=== PATIENT | male | born 1955 | race Caucasian/White ===

== ENCOUNTER 2017-10-13 17:06 | Inpatient (IN) | payer OTHER ==
[~2017-10-13] VITALS: Ht 182.9 cm; Wt 85.4 kg
--- NOTE | ~2017-10-13 | D ---
[facility] [place] [address] DISCHARGE SUMMARY Name: HAIRSHANDA Adams Room #: 213-P [facility] IN ..#: [id number] Admission: 10/13/17 Attend Phys: Sera Saleh Discharge: 10/20/17 Date of : 59 Report #: [id number] THIS REPORT FOR: //name// CC: Serafin Howell FINAL DIAGNOSES: 1. Community-acquired pneumonia. 2. Acute kidney injury. 3. Ischemic cardiomyopathy. 4. Coronary artery disease. 5. Thoracic descending aortic aneurysm. 6. Diabetes type 2. HOSPITAL COURSE: The patient was admitted to the emergency room with shortness of breath. He was diagnosed and treated for pneumonia. He had also undergone a CT with contrast and had some slight contrast-induced acute kidney injury. His creatinine haley to about 2.8. The renal service and cardiology followed him. He received antibiotics during his stay. Thoracic surgery was also involved based on the CT findings of a thoracic aneurysm of the descending aorta. Please see that separately dictated report. Ultimately with supportive medical care, all his conditions improved, his renal function stabilized and improved and creatinine normalized to baseline. Medicines were adjusted for his heart and blood pressure according to cardiology. He finished a course of IV antibiotics and was weaned off oxygen. Chest x-ray showed improvement. He had no other interval complication. The plan is for him to follow up with cardiothoracic surgery as an outpatient, then set up a treatment plan for the aneurysm. PHYSICAL EXAMINATION: GENERAL: On the day of discharge, he was awake and alert with stable vital signs. Normal O2 sats on room air. LUNGS: Clear. HEART: Regular. ABDOMEN: Soft, normoactive bowel sounds. EXTREMITIES: No edema. DISPOSITION: He will be discharged to home with diabetic diet, activity as tolerated. Follow up with Dr. Almonte in 1 week, Dr. Howell in 1 week. [facility] [address] [place] [address] DISCHARGE SUMMARY Name: HAIRSHANDA P Room #: 213-P [facility] IN [facility]#: [id number] Admission: 10/13/17 Attend Phys: Sera Saleh Discharge: 10/20/17 Date of : 59 Report #: [id number] DISCHARGE MEDICATIONS: Lasix 40 mg, Lipitor 40 mg, aspirin 81 mg, Coreg 25 mg b.i.d., fish oil, Prilosec 10 mg, Avapro 300 mg, Aldactone 25 mg. <ELECTRONICALLY SIGNED> By: Jorge Akins MD 10/22/17 0831 1020 1106 Jorge Akins MD /nt
--- NOTE | ~2017-10-13 | HC ---
[facility] [place] [address] CONSULTATION Name: SHANDA HAIR Room #: 213-P ADM IN M.R.#: [id number] Admission: 10/13/17 Attend Phys: Sera Saleh Discharge: Date of : 59 Report #: [id number] THIS REPORT FOR: //name// CC: David Howell DATE OF SERVICE: 10/14/2017 PRIMARY CARE PHYSICIAN: Dr. Serafin Almonte. REFERRING PHYSICIAN: Dr. Jorge Akins. REASON FOR REFERRAL: Infiltrates, possible pneumonia. HISTORY OF PRESENT ILLNESS: The patient is a 62-year-old white male who was admitted with generalized weakness and dyspnea. CT chest and chest x-ray shows infiltrates. A pulmonary consultation was requested regarding questionable pneumonia. It should be noted that the patient is a fair historian. He is quite tangential with his answers, not able to give answers at times. According to records, patient has been hospitalized at [facility] for nephrolithiasis. He has had urethral stents placed. According to the patient, he was hospitalized at least 4 times recently. He was then sent home. He states that he started developing increasing dyspnea a few days prior to presentation. To the Emergency Room personnel, he has also complained of dizziness, lightheadedness along with weakness. CT chest showed evidence of aortic aneurysm. It did show infiltrates. The patient otherwise denies any recent productive cough, febrile illness, chest pain. PAST MEDICAL HISTORY: Notable for coronary artery disease with myocardial infarction with bypass surgery in 2004 at [facility], hypertension, hyperlipidemia, ischemic cardiomyopathy, ejection fraction 30%, status post ICD placement. PAST SURGICAL HISTORY: As mentioned above. ALLERGIES: None to medications. [facility] [address] [place] [address] CONSULTATION Name: HAIRSHANDA Adams Room #: 213-P ADM IN .R.#: [id number] Admission: 10/13/17 Attend Phys: Sera Saleh Discharge: Date of : 59 Report #: [id number] PREVIOUS HOME MEDICATIONS: Include hydrocodone, Norflex, amlodipine, aspirin, Lasix, Coreg, niacin, besylate, Prilosec, Avapro, Aldactone. FAMILY HISTORY: Noncontributory. SOCIAL HISTORY: Denies any tobacco or alcohol use. REVIEW OF SYSTEMS: As mentioned above, otherwise 10-point system review negative. PHYSICAL EXAMINATION: GENERAL: He is awake, alert, was somewhat incoherent, not able to answer questions clearly. VITAL SIGNS: Temperature is 97.6 degrees Fahrenheit, pulse is 83, respiratory rate is 20, blood pressure 110/79 mmHg, saturation 97%. HEENT: Normocephalic, atraumatic. NECK: Supple, without lymphadenopathy or thyromegaly. CHEST: Breath sounds are good with few scattered crackles. No wheezes. CARDIOVASCULAR: Normal S1, S2. There is no murmur or gallop. There is no JVD. There is no carotid bruit. Pulses are 2+/4+ bilaterally. ABDOMEN: Soft, nontender, no organomegaly or masses felt. GENITOURINARY: Deferred. RECTAL: Deferred. EXTREMITIES: There is no edema, cyanosis or clubbing. LABORATORY DATA: Chest x-ray and chest CT are reviewed. Chest x-ray shows hazy infiltrate in the left perihilar area with cardiomegaly, mild linear infiltrates seen in the right upper lobe. CT chest angiogram shows patchy focal infiltrates seen in both upper lung munoz, lower lung munoz, small bilateral pleural effusion. No consolidation or air bronchogram is noted. Mediastinum appears to be unremarkable. Mild ground glass opacity is noted. There is a large aneurysm involving the descending aorta measuring 8.6 x 8.5 x 7.8 cm, a significant mural thrombus is also noted in the anterior wall. BNP is 6900. Influenza A and B negative. Echocardiogram showed ejection fraction of 25%, moderately hypokinetic right ventricle, left ventricle is mildly dilated, mild aortic regurgitation, moderate to severe mitral regurgitation, pulmonary artery pressure measuring 55-60 mmHg. Renal ultrasound was normal. Strep pneumonia antigen is negative. Legionella antigen is negative. Sodium 138, potassium 6.2, chloride 107, CO2 is 22, BUN is 34, creatinine is 2.3. Liver function enzymes unremarkable. WBC 11,900, hemoglobin 11.6, platelets are normal, no evidence of bandemia. Albumin 2.8. IMPRESSION: 1. Patchy focal infiltrates in this 62-year-old white male. Aside from his dyspnea, he denies any recent febrile illness, productive cough. Etiology is [address] [address] CONSULTATION Name: HAIRSHANDA Room #: 213-P ADM IN .R.#: [id number] Admission: 10/13/17 Attend Phys: Sera Saleh Discharge: Date of : 59 Report #: [id number] unclear, but the radiographic appearance does not suggest typical pneumonia pattern, but rather possible atypical infectious process such as viral. Inflammatory cause is also considered. 2. Descending thoracic aortic aneurysm measuring approximately 8 cm in diameter. 3. Acute kidney injury comma/chronic kidney disease. 4. Coronary artery disease, ischemic cardiomyopathy, ejection fraction approximately 25%. 5. Ogrqpdfe-vs-dljycw mitral regurgitation. 6. Pulmonary hypertension due to valvular heart disease. 7. Diabetes mellitus type 2. 8. Hypertension. RECOMMENDATION AND DISCUSSION: We will check a procalcitonin level, although this may not be helpful given his recent hospitalization and nephrolithiasis. I think it is reasonable to consider antibiotics, Infectious Disease has been consulted. We will await Infectious Disease workup and followup chest x-ray. If infiltrates worsens, could consider diagnostic bronchoscopy to rule out infectious processes. Would also consider a trial of diuretics given the presence of ground-glass opacity, ischemic cardiomyopathy and chronic systolic heart failure. Thank you for this consultation. <ELECTRONICALLY SIGNED> By: Yang Martines MD 10/15/17 1615 1818 0024 Yang Martines MD /nt
--- NOTE | ~2017-10-13 | HC ---
[facility] [place] [address] CONSULTATION Name: SHANDA HAIR Adams Room #: 213-P [facility] IN ..#: [id number] Admission: 10/13/17 Attend Phys: Sera Saleh Discharge: Date of : 59 Report #: [id number] THIS REPORT FOR: //name// CC: Serafin Howell REASON FOR CONSULTATION: Elevated creatinine. REASON FOR PRESENTATION: Shortness of breath. HISTORY OF PRESENT ILLNESS: This is a 62-year-old with extensive past medical history including hypertension, coronary artery disease, status post bypass surgery in 2004. He is also known to have cardiomyopathy with an ejection fraction of around 30%. He is also known to have an ICD placed. He has had repeated episodes of kidney stones in the past few months for which he had been seen at [facility]. In that process, he was found to have an aortic aneurysm. Arrangements were made for the patient for this to be evaluated. He checked with the radiology department yesterday and this was closed, so he was told to go to the emergency room. Unfortunately, the patient received CTA and this has resulted in his creatinine to go up from a baseline of around 1.2 on presentation to 2.7 associated with hyperkalemia. This has mandated a nephrology consultation. ALLERGIES: No known drug allergies. MEDICATIONS: 1. Olmesartan. 2. Spironolactone. 3. Lasix. 4. Omeprazole. 5. Amlodipine. PAST MEDICAL HISTORY: 1. Hypertension. 2. Diabetes mellitus. 3. Hyperlipidemia. 4. Status post CABG. 5. ICD placement. SOCIAL HISTORY: No drug or alcohol abuse. He continues to work. FAMILY HISTORY: Significant for coronary artery disease. REVIEW OF SYSTEMS: GENERAL: No fever or chills. CARDIOVASCULAR: As per history of present illness. [facility] [address] [place] [address] CONSULTATION Name: HAIRSHANDA Room #: 213-P [facility] IN [facility].#: [id number] Admission: 10/13/17 Attend Phys: Sera Saleh Discharge: Date of : 59 Report #: [id number] PULMONARY: No cough, but significant shortness of breath. GASTROINTESTINAL: As per the history of present illness, but no nausea or vomiting. GENITOURINARY: No frequency, no urgency. PHYSICAL EXAMINATION: GENERAL: Alert. VITAL SIGNS: Pulse 91, blood pressure 130/98. HEAD AND NECK: No jugular venous distention. CHEST: Decreased air entry bilaterally. Crackles present. CARDIOVASCULAR: Regular. ABDOMEN: Soft, nontender. LOWER EXTREMITIES: No edema. SKIN: There is an ICD. LABORATORY VALUES: Reviewed. White blood cell count is 11.9. Potassium is 5.9, creatinine is 2.7. UA with plus protein and +3 blood. This is a Brice sample. Imaging including his chest CT reviewed. ASSESSMENT, IMPRESSION, AND PLAN: 1. Acute kidney injury. 2. Hyperkalemia. 3. Cardiomyopathy. 4. Pneumonia. 5. Coronary artery disease. 6. Contrast-induced nephropathy. 7. Unfortunately, this is a contrast-induced nephropathy as expected from the load of dye he received yesterday. 8. We will initiate appropriate treatment for his hyperkalemia. 9. IV fluid gently. 10. Discontinue olmesartan, spironolactone. 11. Cultures. 12. Appropriate antibiotic per ID and pulmonary for his infiltrates. 13. We will continue to follow along. <ELECTRONICALLY SIGNED> By: Gene Burrell MD 10/16/17 0953 1002 1022 Gene Burrell MD /nt
--- NOTE | ~2017-10-13 | H ---
[facility] [place] [address] HISTORY AND PHYSICAL Name: SHANDA HAIR Adams Room #: 213-P ADM IN .R.#: [id number] Admission: 10/13/17 Attend Phys: Sera Saleh Discharge: Date of : 59 Report #: [id number] THIS REPORT FOR: //name// CC: Serafin Molina Hermes Dante DATE OF SERVICE: 10/13/2017 CHIEF COMPLAINT: Weakness. HISTORY OF PRESENT ILLNESS: The patient is a 62-year-old gentleman admitted to the emergency room with general weakness. He presented yesterday after there was some question of whether he needed a CAT scan related to a known abdominal aortic aneurysm. He was routed through the emergency room and was complaining of feeling short of breath for a couple of weeks and general weakness. He also reported some dark stools. He had been undergoing evaluation for an abdominal aortic aneurysm at [facility] physicians earlier in the day and was directed to ER for a CT of the abdomen. He does have a history of coronary artery disease with bypass and DE in the past. PAST MEDICAL HISTORY: Coronary artery disease, cardiac bypass in 2004, hypertension, dyslipidemia, ischemic cardiomyopathy, EF 30%; and history of a cardiac defibrillator placement in 2006. PAST SURGICAL HISTORY: As above. FAMILY HISTORY: Noncontributory. SOCIAL HISTORY: No known chronic alcohol or tobacco use. ALLERGIES: None. MEDICATIONS: Arthur 5/40 mg, aspirin 81 mg, Lasix 20 mg, Coreg 25 mg twice a day, niacin, fish oil, Prilosec, Avapro 300 mg a day, and Aldactone 25 mg a day. REVIEW OF SYSTEMS: He just complains of general weakness. Otherwise, no headache, chest pain, productive cough, shortness of breath, abdominal pain, nausea, vomiting, diarrhea, constipation, dysuria, or syncope. OBJECTIVE: VITAL SIGNS: Temperature 36.6, pulse 93, respiration 22, blood pressure 140/101. GENERAL: He is awake and alert, in no distress. HEAD AND NECK: Unremarkable. LUNGS: Clear. [facility] [address] [place] [address] HISTORY AND PHYSICAL Name: HAIRSHANDA Room #: 213-P [facility] IN .R.#: [id number] Admission: 10/13/17 Attend Phys: Sera Saleh Discharge: Date of : 59 Report #: [id number] HEART: Regular. ABDOMEN: Obese, soft, normoactive bowel sounds. No rebound or guarding. EXTREMITIES: No cyanosis, clubbing, or edema. NEUROLOGIC: Motor strength 4/5 throughout. LAB REVIEW: White count is 11.9. Potassium 5.9, creatinine 2.7. A CT chest reveals descending aortic aneurysm of 8 x 8 cm with a mural thrombus. There are also pulmonary infiltrates with ground glass opacities and bilateral pleural effusions. ASSESSMENT: 1. Acute kidney injury. 2. Hyperkalemia. 3. Cardiomyopathy, ejection fraction 30%. 4. Coronary artery disease. 5. Pneumonia. 6. Descending aortic aneurysm. PLAN: He is currently receiving antibiotics and pulmonary treatment along with the assessment from cardiology and neurology. Home medicines will be adjusted for renal function and supportive measures in place. First issue will be stabilizing his pulmonary status and renal function. Eventually, he will need a surgical opinion on his aneurysm. <ELECTRONICALLY SIGNED> By: Jorge Akins MD 10/15/17 0859 1205 1223 Jorge Akins MD /nt
--- NOTE | ~2017-10-13 | HC ---
[facility] [place] [address] CONSULTATION Name: HAIRSHANDA Adams Room #: 213-P [facility] IN .R.#: [id number] Admission: 10/13/17 Attend Phys: Sera Saleh Discharge: Date of : 59 Report #: [id number] THIS REPORT FOR: //name// CC: Serafin Howell REASON FOR CONSULTATION: Shortness of breath. HISTORY OF PRESENT ILLNESS: The patient is a 62-year-old gentleman with a moderately severe ischemic cardiomyopathy with bypass surgery in 2004, with subsequent ICD placement in 2006. His history includes hypertension, dyslipidemia and recent kidney stones for which he has been seen 3 times at [facility]. During one of these recent evaluations, he was found to have an abdominal aortic aneurysm. He saw Dr. South in the office yesterday and arrangements were made for an outpatient evaluation. He came to [facility] and the radiology department was closed and he was told to check in at registration in the emergency department. Somehow, he got admitted through the emergency department after an evaluation, which included imaging of his aorta. He was also found to have an extensive left lung infiltrate. He describes occasional chills, no fevers, he has had 2 weeks of shortness of breath without orthopnea or paroxysmal nocturnal dyspnea. No history of palpitations, ICD discharge, near syncope, or syncope. ALLERGIES: There are no known drug allergies. MEDICATIONS: Include amlodipine 5 mg daily, olmesartan 40 mg daily, aspirin 81 mg daily, Lasix 20 mg daily, carvedilol 25 mg twice daily, omeprazole 10 mg daily, and spironolactone 25 mg daily. PAST MEDICAL HISTORY: Medical records have been reviewed and include a history of bypass surgery in 2004, diabetes, hypertension, dyslipidemia, and empiric ICD placement. SOCIAL HISTORY: He is a nonsmoker, nondrinker. 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 FAMILY HISTORY: Notable for father who had coronary artery disease. REVIEW OF SYSTEMS: All systems negative except as that noted above. PHYSICAL EXAMINATION: GENERAL: A pleasant gentleman, in no distress. VITAL SIGNS: Blood pressure is 140/80, heart rate of 85 and regular, he is afebrile, 6 feet tall, 209 pounds. [facility] [address] [place] [address] CONSULTATION Name: SHANDA HAIR Room #: 213-P [facility] IN .R.#: [id number] Admission: 10/13/17 Attend Phys: Sera Saleh Discharge: Date of : 59 Report #: [id number] HEENT: There are neither xanthelasma, subcutaneous xanthomata, oral mucosal or digital cyanosis or kyphoscoliosis present. CHEST: Reveals diminished breath sounds at the left base. CARDIAC: Regular rate and rhythm with normal S1, S2. ABDOMEN: Soft and nontender. EXTREMITIES: Without cyanosis, clubbing, or edema. Radial pulses are 2+. NEUROLOGIC: He is alert with a nonfocal exam. LABORATORY DATA: Sodium is 139, potassium 5.9, creatinine 2.7, his creatinine was 1.7 at [facility] several weeks ago. Troponin is negative. ProBNP of 6900. White count 11.9, hemoglobin 11, hematocrit 36, platelet count 278 with 88% neutrophils. Chest x-ray demonstrates extensive left mid and lower lung infiltrate. CT scan demonstrates a large descending aortic aneurysm measuring 8.6 cm in AP diameter. Diffuse bilateral pulmonary infiltrates and ground glass opacities consistent with pneumonitis were seen in the lung field. IMPRESSION: 1. Bilateral lung infiltrates, left greater than right, probable pneumonia/pneumonitis. 2. Acute kidney injury, suspect component of contrast nephropathy. 3. Severe ischemic cardiomyopathy. 4. Coronary artery disease with remote bypass. 5. Diabetes. 6. Hypertension. 7. Dyslipidemia. RECOMMENDATIONS: 1. Pulmonary and renal evaluations. 2. Continue carvedilol and amlodipine, hold diuretic and ARB therapy. We will arrange evaluation and treatment of aortic aneurysm once pulmonary issues have been treated and resolved. I have discussed these issues with the patient. Thank you for asking me to participate in his care. <ELECTRONICALLY SIGNED> By: Dawood Mcintosh MD, FACC 10/14/17 0855 0743 0816 Dawood Mcintosh MD, FAC /nt
--- NOTE | ~2017-10-13 | EKG ---
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: INOCENCIO : 1955 Requested By: Nabil Rudolph Order Number: [id number] MD: Alirio Grayson Measurements Intervals [place] Rate: 87 P: 23 IN: 184 QRS: -46 QRSD: 121 T: 129 QT: 402 QTc: 484 Interpretive Statements Sinus rhythm Multiple ventricular premature complexes Left atrial enlargement Nonspecific IVCD with LAD Inferior infarct, old Electronically Signed On 10-13-2017 20:53:04 [employer] by Alirio Grayson [email or web address] <ELECTRONICALLY SIGNED> By: Alirio Grayson MD 10/13/172052 11 11 Alirio Grayson MD /UYEN
--- NOTE | ~2017-10-13 | SPIROMETRY ---
[facility] [place] [address] SPIROMETRY Name: SHANDA HAIR Room #: 213-P [facility] IN M.R.#: [id number] Admission: 10/13/17 Attend Phys: Serafin Almonte MD Discharge: 10/20/17 Date of : 59 Report #: [id number] THIS REPORT FOR: //name// >> SPIROMETRY: (BTPS) Height: 72 in cm Weight: 204 lbs kg Exam Date: 10/16/17 PRE-RX POST-RX PRED BEST %PRED BEST %PRED %CHG FVC LITERS . 4.88 . 2.17 . 44 . 3.11 . 64 . 43 FEV1 LITERS . 3.90 . 1.64 . 42 . 1.62 . 42 . -1 FEV1/FVC % . 79 . 75 . 95 . 52 . 66 . -31 CMG09-16% L/Sec . 3.90 . 1.32 . 34 . 1.24 . 32 . -6 PEF L/SEC . 9.09 . 5.42 . 60 . 3.31 . 36 . -39 FEF50/FIF50 UNITLESS . <1.00 . 1.42 . . 0.83 . . -41 >> INTERPRETATION/IMPRESSION: CC: Serafin Howell Spirometry examination reveals moderate to severely reduced flows. There was significant bronchodilator response. Flow volume loop is consistent with airflow obstruction. IMPRESSION: Moderately severe obstructive ventilatory defect. <ELECTRONICALLY SIGNED> By: Yang Martines MD 12/31/17 1449 Yang Martines MD /nt
--- NOTE | ~2017-10-13 | 2DMMODE ---
[facility] [address] [place] [address] 2 D/M-MODE ECHOCARDIOGRAM Name: SHANDA HAIR Room #: 213-P [facility] IN ..#: [id number] Admission: 10/13/17 Attend Phys: Serafin Webster Discharge: Date of : 59 Date of Service: 10/14/17 1039 Report #: [id number] THIS REPORT FOR: //name// APPROVED REPORT Study performed: 10/14/2017 10:34:54 EXAM: Comprehensive 2D, Doppler, and color-flow Echocardiogram Patient Location: Echo lab Room #: 213 Status: routine BSA: 2.18 HR: 87 bpm BP: 140/101 mmHg Rhythm: Irregular Other Information Study Quality: Adequate Indications Thoracic aortic aneurysm. Evaluate aortic valve and LV function. Hx: ISCM, CABG, ICD Echo Enhancing Agent Indication: Endocardial border delineation Agent(s) / Amount(s) Used: Optison 6 cc 2D Dimensions RVDd: 51.53 mm LVEF(%): 29.58 (>50%) IVSd: 10.07 (7-11mm) LVOT Diam: 25.22 (18-24mm) LVDd: 65.76 mm PWd: 9.99 (7-11mm) Ascending Ao: 42.25 (22-36mm) LVDs: 56.39 (25-40mm) Aortic Root: 40.16 mm Delgado's LVEF: 29.58 % Volumes Left Atrial Volume (Systole) Single Plane 4CH: 64.78 mL Single Plane 2CH: 90.25 mL LA ESV Index: 37.00 mL/m2 Aortic Valve AoV Peak Blaise.: 1.01 m/s AO Peak Gr.: 4.06 mmHg LVOT Max P.58 mmHg LVOT Max V: 0.63 m/s [facility] [place] [address] 2 D/M-MODE ECHOCARDIOGRAM Name: SHANDA HAIR Room #: 213-P [facility] IN M.R.#: [id number] Admission: 10/13/17 Attend Phys: Serafin Webster Discharge: Date of : 59 Date of Service: 10/14/17 1039 Report #: [id number] ARABELLA Vmax: 3.12 cm2 Mitral Valve E/A Ratio: 1.9 MV Decel. Time: 142.12 ms MV E Max Blaise.: 1.01 m/s MV A Blaise.: 0.54 m/s MV PHT: 36.35 ms IVRT: 62.28 ms Pulmonary Valve PV Peak Blaise.: 0.55 m/s PV Peak Gr.: 1.21 mmHg Tricuspid Valve TR Peak Blaise.: 3.40 m/s RAP Estimate: 10.00 mmHg TR Peak Gr.: 46.34 mmHg PA Pressure: 56.00 mmHg Left Ventricle Left ventricle is moderately dilated. There is normal left ventricular wall thickness. Left ventricular systolic function is severely decreased. LVEF is 25%. Right Ventricle Right ventricle is borderline dilated. Right ventricle is moderately hypokinetic. Device lead is present in the right ventricle. Atria Left atrium is mild to moderately dilated. Right atrium is mildly dilated. Aortic Valve Aortic valve leaflets are mildly thickened. Mild aortic regurgitation. There is no aortic valvular stenosis. Mitral Valve The mitral valve is normal in structure. Moderate to severe mitral regurgitation Tricuspid Valve The tricuspid valve is normal in structure. Mild to moderate tricuspid regurgitation. Estimated PAP is 55-60mmHg. Pulmonic Valve The pulmonary valve is normal in structure. Mild pulmonic regurgitation. [place] [id number] 2 D/M-MODE ECHOCARDIOGRAM Name: HAIRSHANDA Room #: 213-P [facility] IN ..#: [id number] Admission: 10/13/17 Attend Phys: Serafin Webster Discharge: Date of : 59 Date of Service: 10/14/17 1039 Report #: [id number] [place] Aortic root is mildly dilated at 4.0cm. Ascending aorta is dilated at 4.2cm. IVC is dilated and collapses >50% with inspiration. Pericardium There is no pericardial effusion. <Conclusion> Left ventricle is moderately dilated. LVEF is 25%. Right ventricle is borderline dilated. Right ventricle is moderately hypokinetic. Device lead is present in the right ventricle. Left atrium is mild to moderately dilated. Right atrium is mildly dilated. Aortic valve leaflets are mildly thickened. Mild aortic regurgitation. The mitral valve is normal in structure. Moderate to severe mitral regurgitation The tricuspid valve is normal in structure. Mild to moderate tricuspid regurgitation. Estimated PAP is 55-60mmHg. The pulmonary valve is normal in structure. Mild pulmonic regurgitation. There is no pericardial effusion. Aortic root is mildly dilated at 4.0cm. Ascending aorta is dilated at 4.2cm. <ELECTRONICALLY SIGNED> By: Ahmet Carballo MD 10/14/17 1039 1039 1039 Ahmet Carballo MD /INF
--- NOTE | ~2017-10-13 | HC ---
[facility] [place] [address] [place] [address] CONSULTATION Name: SHANDA HAIR Room #: 213-P [facility] IN .R.#: [id number] Admission: 10/13/17 Attend Phys: Sera Saleh Discharge: Date of : 59 Report #: [id number] THIS REPORT FOR: //name// CC: Serafin Howell REASON FOR CONSULTATION: I was asked to evaluate concerning bilateral pulmonary infiltrates and nephrolithiasis associated with ischemic cardiomyopathy and descending thoracic aortic aneurysm. HISTORY OF PRESENT ILLNESS: The patient is a 62-year-old with ischemic cardiomyopathy and known aortic aneurysm. He has been treated for nephrolithiasis and ureteral stones at [facility]. The patient was a very poor historian. He was lethargic and unable to complete some of his thoughts. He; however, was at [facility] and had ureteral stents placed. Unclear if these are in or not. He did not recall the name of his urologist. He does have underlying history of hypertension and hyperlipidemia. He has been seen by cardiology and interventional radiology regarding his 8 cm descending thoracic aortic aneurysm. Over the last week, he has noticed nonproductive cough. He has had more shortness of breath and presents for this reason. He describes some left-sided chest discomfort, no hemoptysis, no documented fever, chills or sweats. He denies any nausea, vomiting or diarrhea. No dysuria. On presentation, he had a CAT scan of his chest, which confirmed the 8 cm descending aneurysm along with bilateral pulmonary infiltrates and a left upper lobe nodule. The patient denies any previous pneumonia. No reported HIV risk factors. No travel outside the [place]. 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 ALLERGIES: None known. MEDICATIONS: Amlodipine, olmesartan, aspirin, Lasix, carvedilol, omeprazole, and spironolactone. In the emergency room, he was given ceftriaxone. PAST MEDICAL HISTORY: In addition to the above, he has had coronary artery bypass in 2004 along with an AICD. He has underlying diabetes, hypertension, and hyperlipidemia. He is a smoker of cigarettes. FAMILY HISTORY: Noncontributory. SOCIAL HISTORY: No significant alcohol intake. No other issues noted. He does live on his own. REVIEW OF SYSTEMS: Denies any dysuria or frequency. No hematuria. Stools have been normal. No rashes. PHYSICAL EXAMINATION: [facility] [address] [place] [address] CONSULTATION Name: SHANDA HAIR Adams Room #: 213-P [facility] IN [facility].#: [id number] Admission: 10/13/17 Attend Phys: Sera Saleh Discharge: Date of : 59 Report #: [id number] VITAL SIGNS: He is afebrile, blood pressure 130/98, heart rate 91, he is on 2 liters of oxygen per nasal cannula. GENERAL: He was lethargic. Mental status was a bit slow and he had difficulty maintaining his concentration. HEENT: Unremarkable. NECK: Supple. LUNGS: Coarse breath sounds heard in the mid posterior chest bilaterally. No consolidation. No rub. CARDIOVASCULAR: Heart was regular without appreciable murmur, gallop or rub. ABDOMEN: Obese, soft, nontender, no hepatosplenomegaly or mass appreciated. EXTREMITIES: Unremarkable. Pulses in extremities unremarkable. He was moderately obese. LABORATORY STUDIES: Echocardiogram shows an EF of 25%. Sodium 139, potassium 5.9, bicarb of 18, creatinine 2.7, baseline of 1.2. Liver function test normal. BNP was 7000. Hemoglobin 11.6, WBC 11.9, and platelet count 278,000. Urinalysis, few wbc's, many rbc's, many bacteria. CT scan of the chest with bilateral infiltrates, 2 cm nodule in the left upper lobe and a descending aortic aneurysm approximately 8 cm. Blood, urine and sputum cultures are pending. Influenza antigen negative. Urine antigens for strep pneumo and legionella are pending. IMPRESSION: A 62-year-old with ischemic cardiomyopathy and a large descending aortic aneurysm, presents with bilateral pulmonary infiltrates, now with acute renal failure likely post-contrast induced. Also, has nephrolithiasis with ureteral obstruction in the recent past. RECOMMENDATIONS: We will continue workup of his pulmonary infiltrates. Check HIV, sputum culture, antigens and viral respiratory panel. We will discuss with pulmonary medicine regarding timing of his aortic aneurysm repair. Check syphilis antibody. We will check ultrasound of the kidneys to ensure no obstruction. Need to identify if stents are still in place. Does have bacteriuria and we will await urine culture. We will continue antibiotic coverage with azithromycin, ceftriaxone, and Tamiflu. <ELECTRONICALLY SIGNED> By: Fred Almonte MD 10/15/17 0914 1238 1313 Fred Almonte MD /nt
[~2017-10-13 17:06] MED LIST: ASPIR 8181 MG PO; AZOR 5-40 MG T1 EACH PO; COREG25 MG PO; FISH OIL 1,001000 M2 PO; HYDROCODONE-AP1 EAC6 PO; KLOR-CON 1010 MEQ PO; LASIX 20 MG TAB20 MG PO; NIACIN 500 MG500 M1 PO; NORFLEX100 MG PO; SIMVASTATIN20 MG PO
[2017-10-13 17:09] VITALS: BP 127/91
[2017-10-13] MEDS ORDERED: BESYLATE PO (18:00)
[2017-10-13] MEDS ORDERED: PRILOSEC 10MG C10 MG PO (18:01)
[2017-10-13] MEDS ORDERED: AVAPRO300 MG PO (18:01)
[2017-10-13] MEDS ORDERED: ALDACTONE25 MG PO (18:02)
[2017-10-13 18:20] LABS: HEMATOCRIT 35.8 % (42.0-52.0); HEMOGLOBIN 11.8 gm/dL (14.0-18.0); MCH 27.5 pg (26.0-34.0); MCV 83.3 fL (80.0-100.0); PLATELET COUNT 269 thou/uL (150-400); RDW 14.7 % (10.5-14.5); WBC 10.5 thou/uL (4.0-11.0)
[2017-10-13 18:31] LABS: ANION GAP 10 mmol/L (7-16); BUN 34 mg/dL (7-18); CHLORIDE 107 mmol/L (98-107); CO2 21 mmol/L (21-32); CREATININE 2.3 mg/dL (0.7-1.3); GLUCOSE 162 mg/dL (74-106); SODIUM 138 mmol/L (136-145)
[2017-10-13 18:34] LABS: POTASSIUM 6.2 mmol/L (3.5-5.1)
[2017-10-13 18:41] LABS: TROPONIN-I < 0.04 ng/mL (<0.06)
[2017-10-13 18:45] LABS: ABSOLUTE NEUTROPHILS 9.2 thou/uL (1.4-8.2); NUCLEATED RBCS 1 /100WBC
[2017-10-13 18:47] LABS: ATYPICAL LYMPHS 2 %
[2017-10-13 18:48] LABS: ANISOCYTOSIS 1+; POLYCHROMASIA OCCASIONAL
[2017-10-13 20:38] LABS: CALCIUM 8.1 mg/dL (8.5-10.1); CREATININE 2.1 mg/dL (0.7-1.3)
[2017-10-13 20:41] LABS: POTASSIUM 5.2 mmol/L (3.5-5.1)
[2017-10-13 20:50] LABS: ICTOTEST (BILI CONFIRMATORY) Negative (Negative); URINE BILIRUBIN NEGATIVE (Negative); URINE BLOOD 3+ (Negative); URINE CLARITY SL CLOUDY; URINE COLOR YELLOW; URINE GLUCOSE-RANDOM* NEGATIVE (Negative); URINE KETONES TRACE (Negative); URINE LEUKOCYTES TRACE (Negative); URINE NITRITE NEGATIVE (Negative); URINE PROTEIN (DIPSTICK) 2+ (Negative); URINE SPECIFIC GRAVITY 1.025 (1.005-1.035); URINE UROBILINOGEN 0.2 E.U./dl (0.2-1.0)
[2017-10-13 20:58] LABS: SQUAMOUS None Seen /LPF (0-3); URINE WBC 6-15 Few /HPF (0-5)
[2017-10-13 20:59] LABS: AMORPHOUS URATES Few /LPF (None Seen); BACTERIA >30 Many /HPF (None Seen); CASTS None Seen /LPF (None Seen); URINE RBC >20 Many /HPF (0-2)
[2017-10-13 21:12] VITALS: BP 129/90
[2017-10-13 21:35] VITALS: BP 133/93
[2017-10-13 22:29] VITALS: BP 147/80
[2017-10-14 03:16] LABS: HEMATOCRIT 36.3 % (42.0-52.0); HEMOGLOBIN 11.6 gm/dL (14.0-18.0); MCH 27.4 pg (26.0-34.0); MCV 85.6 fL (80.0-100.0); RBC 4.24 mil/uL (4.50-6.00); RDW 14.8 % (10.5-14.5); WBC 11.9 thou/uL (4.0-11.0)
[2017-10-14 03:40] LABS: ALBUMIN 2.8 g/dL (3.4-5.0); CALCIUM 8.5 mg/dL (8.5-10.1); CREATININE 2.7 mg/dL (0.7-1.3); POTASSIUM 5.9 mmol/L (3.5-5.1); TOTAL BILIRUBIN 0.5 mg/dL (<0.1-1.0); TOTAL PROTEIN 6.4 g/dL (6.4-8.2)
[2017-10-14 04:45] VITALS: BP 140/101
[2017-10-14 08:00] VITALS: BP 130/98
[2017-10-14 12:00] VITALS: BP 101/74
[2017-10-14 16:00] VITALS: BP 110/79
[2017-10-14 20:05] VITALS: BP 110/81
[2017-10-15 03:28] LABS: HEMATOCRIT 31.3 % (42.0-52.0); HEMOGLOBIN 10.3 gm/dL (14.0-18.0); MCH 27.6 pg (26.0-34.0); MCV 83.7 fL (80.0-100.0); RBC 3.74 mil/uL (4.50-6.00); RDW 14.7 % (10.5-14.5); WBC 7.2 thou/uL (4.0-11.0)
[2017-10-15 03:59] LABS: ALBUMIN 2.3 g/dL (3.4-5.0); CALCIUM 8.2 mg/dL (8.5-10.1); PHOSPHORUS 4.3 mg/dL (2.5-4.9); POTASSIUM 4.6 mmol/L (3.5-5.1)
[2017-10-15 05:05] VITALS: BP 125/93
[2017-10-15 05:16] LABS: CREATININE 1.3 mg/dL (0.7-1.3)
[2017-10-15 07:45] VITALS: BP 121/86
[2017-10-15 08:07] LABS: HIV ANTIBODY Non Reactive (Non Reactive)
[2017-10-15 11:15] VITALS: BP 112/72
[2017-10-15 15:45] VITALS: BP 102/64
[2017-10-15 20:31] VITALS: BP 122/88
[2017-10-16 05:42] VITALS: BP 107/67
[2017-10-16 06:52] LABS: HEMATOCRIT 33.6 % (42.0-52.0); HEMOGLOBIN 10.9 gm/dL (14.0-18.0); MCH 27.8 pg (26.0-34.0); MCHC 32.4 g/dL (28.0-37.0); MCV 85.5 fL (80.0-100.0); RBC 3.92 mil/uL (4.50-6.00); RDW 14.7 % (10.5-14.5); WBC 6.7 thou/uL (4.0-11.0)
[2017-10-16 07:03] LABS: CALCIUM 8.6 mg/dL (8.5-10.1); CREATININE 1.2 mg/dL (0.7-1.3); POTASSIUM 4.5 mmol/L (3.5-5.1)
[2017-10-16 07:25] VITALS: BP 106/70
[2017-10-16 08:12] LABS: GLOMERULR BASEM MEMBRN AB 4 units (0-20)
[2017-10-16 09:08] LABS: ANA INTERPRETATION Negative (Negative)
[2017-10-16 16:10] VITALS: BP 114/83
[2017-10-16 17:07] LABS: HISTOPLASMA MYCELIAL-ID Negative (Negative)
[2017-10-16 20:11] VITALS: BP 109/65
[2017-10-16 22:06] LABS: HISTOPLASMA MYCELIAL-CF Negative (Neg:<1:2)
[2017-10-17 04:49] LABS: HEMATOCRIT 38.1 % (42.0-52.0); HEMOGLOBIN 12.3 gm/dL (14.0-18.0); MCH 27.3 pg (26.0-34.0); MCHC 32.3 g/dL (28.0-37.0); MCV 84.4 fL (80.0-100.0); RBC 4.51 mil/uL (4.50-6.00); RDW 14.9 % (10.5-14.5); WBC 8.4 thou/uL (4.0-11.0)
[2017-10-17 04:56] VITALS: BP 117/79
[2017-10-17 05:01] LABS: CALCIUM 8.9 mg/dL (8.5-10.1); CREATININE 1.1 mg/dL (0.7-1.3); POTASSIUM 4.7 mmol/L (3.5-5.1)
[2017-10-17 05:10] LABS: ADENOVIRUS Negative (Negative); INFLUENZA A Negative (Negative); INFLUENZA B Negative (Negative); METAPNEUMOVIRUS Negative (Negative); PARAINFLUENZA 1 Negative (Negative); PARAINFLUENZA 2 Negative (Negative); PARAINFLUENZA 3 Negative (Negative); RHINOVIRUS Negative (Negative); RSV A Negative (Negative); RSV B Negative (Negative)
[2017-10-17 07:25] VITALS: BP 105/80
[2017-10-17 12:00] VITALS: BP 111/76
[2017-10-17 16:05] VITALS: BP 94/64
[2017-10-17 19:48] VITALS: BP 112/73
[2017-10-18 04:51] VITALS: BP 105/79
[2017-10-18 07:40] VITALS: BP 98/63
[2017-10-18 11:35] VITALS: BP 90/64
[2017-10-18 14:15] LABS: CALCIUM 8.8 mg/dL (8.5-10.1); CREATININE 1.2 mg/dL (0.7-1.3); POTASSIUM 4.2 mmol/L (3.5-5.1)
[2017-10-18 16:15] VITALS: BP 104/73
[2017-10-18 19:32] VITALS: BP 96/65
[2017-10-19 04:22] VITALS: BP 110/80
[2017-10-19 05:48] LABS: HEMATOCRIT 36.8 % (42.0-52.0); HEMOGLOBIN 12.1 gm/dL (14.0-18.0); MCH 27.4 pg (26.0-34.0); MCHC 32.8 g/dL (28.0-37.0); MCV 83.8 fL (80.0-100.0); RBC 4.39 mil/uL (4.50-6.00); RDW 14.3 % (10.5-14.5); WBC 7.6 thou/uL (4.0-11.0)
[2017-10-19 06:00] LABS: POTASSIUM 4.6 mmol/L (3.5-5.1)
[2017-10-19 08:15] VITALS: BP 111/74
[2017-10-19 11:20] VITALS: BP 86/56
[2017-10-19 15:20] VITALS: BP 93/63
[2017-10-19 20:21] VITALS: BP 99/68
[2017-10-20 05:21] VITALS: BP 95/66
[2017-10-20 07:40] VITALS: BP 124/55
[2017-10-20 07:45] VITALS: BP 111/75
[2017-10-20] MEDS ORDERED: LASIX 20 MG TAB20 MG PO (08:10)
[2017-10-20] MEDS ORDERED: ATORVASTATIN CA40 MG PO (10:16)
[2017-10-20 10:24] VITALS: BP 111/75
[2017-10-21 01:09] LABS: ADENOVIRUS Negative (Negative); INFLUENZA A Negative (Negative); INFLUENZA B Negative (Negative); METAPNEUMOVIRUS Negative (Negative); PARAINFLUENZA 1 Negative (Negative); PARAINFLUENZA 2 Negative (Negative); PARAINFLUENZA 3 Negative (Negative); RHINOVIRUS Negative (Negative); RSV A Negative (Negative); RSV B Negative (Negative)
[2017-10-29] MEDS ORDERED: FLOMAX0.4 MG PO (11:28)
[2017-10-29] MEDS ORDERED: AMARYL2 MG PO (11:31)
== END 2017-10-20 15:20 | disposition home or self-care (01) | DRG 193 ==
LOC: ER 17:06 → 2N 20:36 → EROBS 20:36 → 2N 21:50 → ENTRNSPT 10-20 15:12 → EDTRNSPTSTS 10-20 15:15 → EDTRNSPT 10-20 15:17 → 2N 10-20 15:20
PROVIDERS: Internal Medicine; Internal Medicine Cardiovascular Disease; Internal Medicine Geriatric Medicine; Internal Medicine Pulmonary Disease; Nurse Practitioner; Specialist
PROC: B24BZZ4 Ultrasonography of Heart with Aorta, Transesophageal (ICD-10-PCS; principal; 2017-10-13)
DX: J18.9 Pneumonia, unspecified organism (principal); I50.23 Acute on chronic systolic (congestive) heart failure; N17.9 Acute kidney failure, unspecified; I38 Endocarditis, valve unspecified; I13.0 Hypertensive heart and chronic kidney disease with heart failure and stage 1 through stage 4 chronic kidney disease, or unspecified chronic kidney disease; I34.0 Nonrheumatic mitral (valve) insufficiency; I27.20 Pulmonary hypertension, unspecified; N18.9 Chronic kidney disease, unspecified; I45.10 Unspecified right bundle-branch block; E11.65 Type 2 diabetes mellitus with hyperglycemia; E78.00 Pure hypercholesterolemia, unspecified; E87.5 Hyperkalemia; I71.4 Abdominal aortic aneurysm, without rupture; I25.10 Atherosclerotic heart disease of native coronary artery without angina pectoris; I25.5 Ischemic cardiomyopathy; T50.8X5A Adverse effect of diagnostic agents, initial encounter; N14.1 Nephropathy induced by other drugs, medicaments and biological substances; I25.2 Old myocardial infarction; Z95.1 Presence of aortocoronary bypass graft; Z95.810 Presence of automatic (implantable) cardiac defibrillator; Y92.89 Other specified places as the place of occurrence of the external cause; Z79.82 Long term (current) use of aspirin; Z79.899 Other long term (current) drug therapy; Z87.442 Personal history of urinary calculi; Z82.49 Family history of ischemic heart disease and other diseases of the circulatory system
CPT/HCPCS: 10081

== ENCOUNTER 2017-11-11 05:23 | Inpatient (IN) | payer OTHER ==
[2017-11-03 10:37] LABS: URINE BILIRUBIN NEGATIVE (Negative); URINE BLOOD 3+ (Negative); URINE CLARITY SL CLOUDY; URINE COLOR YELLOW; URINE GLUCOSE-RANDOM* NEGATIVE (Negative); URINE KETONES NEGATIVE (Negative); URINE LEUKOCYTES-REFLEX NEGATIVE (Negative); URINE NITRITE-REFLEX NEGATIVE (Negative); URINE PROTEIN (DIPSTICK) TRACE (Negative); URINE SPECIFIC GRAVITY >= 1.030 (1.005-1.035); URINE UROBILINOGEN 0.2 E.U./dl (0.2-1.0)
[2017-11-03 10:43] LABS: HEMATOCRIT 37.9 % (42.0-52.0); HEMOGLOBIN 12.6 gm/dL (14.0-18.0); MCH 27.3 pg (26.0-34.0); MCHC 33.2 g/dL (28.0-37.0); MCV 82.2 fL (80.0-100.0); RBC 4.61 mil/uL (4.50-6.00); RDW 15.1 % (10.5-14.5); WBC 7.7 thou/uL (4.0-11.0)
[2017-11-03 10:49] LABS: SQUAMOUS 4-10 Moderate /LPF (0-3)
[2017-11-03 10:50] LABS: CASTS None Seen /LPF (None Seen); CRYSTALS None Seen /LPF (None Seen); URINE RBC >20 Many /HPF (0-2); URINE WBC-REFLEX 6-15 Few /HPF (0-5); YEAST-REFLEX Present (None Seen)
[2017-11-03 10:53] LABS: APTT 26.4 Seconds (24.5-32.8); PROTIME 10.2 Seconds (9.3-11.4)
[2017-11-03 10:56] LABS: ALBUMIN 3.6 g/dL (3.4-5.0); CREATININE 1.2 mg/dL (0.7-1.3); TOTAL BILIRUBIN 0.5 mg/dL (<0.1-1.0); TOTAL PROTEIN 6.7 g/dL (6.4-8.2)
[~2017-11-11] VITALS: Ht 182.9 cm; Wt 88.0 kg
--- NOTE | ~2017-11-11 | HC ---
[facility] [place] [address] [place] [address] CONSULTATION Name: SHANDA HAIR Room #: 214-P [facility] IN ..#: [id number] Admission: 11/11/17 Attend Phys: Hermes Howell MD Discharge: 11/13/17 Date of : 59 Report #: [id number] THIS REPORT FOR: //name// CC: Serafin Howell DATE OF SERVICE: 11/12/2017 HISTORY OF PRESENT ILLNESS: The patient is a 62-year-old male known to myself. He is status post descending thoracic aneurysm repair with a TEVAR. This was by cardiovascular surgeons and Dr. South. The procedure went well. This was yesterday. He has had some mild hypertension and unfortunately today went into AFib, rapid ventricular response. He has remained hemodynamically stable through this. He feels fairly well. He has had a prior ICD replacement. He had an ischemic cardiomyopathy with a bypass surgery in 2004 and anterior wall infarct, which dates back to that time. He is on an amiodarone drip and the rate has decreased from the 140-150 range, now to around 100. Intermittently, he is having some paced beats. He is relatively asymptomatic. He is on a low-dose Cardene and amiodarone drips by protocol. He denies any chest pain or anginal complaints. HOME MEDICATIONS: Have been amlodipine 5, baby aspirin, olmesartan, Lasix, carvedilol 25 b.i.d., omeprazole, and Aldactone 25. PAST MEDICAL HISTORY: Positive for the anterior infarct, bypass surgery, hypertension, hypercholesterolemia, ICD placement. SOCIAL HISTORY: He is single, limited exercise, coke a day, not a smoker, no alcohol. FAMILY HISTORY: Strongly positive for both parents have had coronary artery disease prematurely. ALLERGIES: No known drug allergies. REVIEW OF SYSTEMS: Essentially negative except for stated above. Intermittently, he does become dyspneic and has some nocturia at times, he states. LABORATORY DATA: Sodium 136, potassium 4.1, BUN 16, creatinine 0.9, calcium 7.7. H and H 9.8 and 29.6, white count 9.1, platelets 152. PHYSICAL EXAMINATION: VITAL SIGNS: Pulse is 90s, blood pressure is 136/90. GENERAL: He is alert and oriented. He is in no distress. HEENT: Eyes reveal xanthelasmas. Pharynx is clear. [facility] [address] [place] [address] CONSULTATION Name: SHANDA HAIR Room #: 214-P [facility] IN [facility]#: [id number] Admission: 11/11/17 Attend Phys: Hermes Howell MD Discharge: 11/13/17 Date of : 59 Report #: [id number] NECK: Shows preserved upstrokes without JVD or bruits. LUNGS: Clear, slight diminished in the right base. CARDIOVASCULAR: Some irregularity, tachycardic, S1, S2. Rate has improved. ABDOMEN: Soft. No extensive tenderness. Groin is bandaged secondary to the access for the thoracic aneurysm stent graft repair. EXTREMITIES: Distal pulses diminished, but intact. NEUROLOGIC: Nonfocal. SKIN: Warm and dry without xanthoma or ulcer. MUSCULOSKELETAL: Mild arthritic changes. ASSESSMENT: 1. Status post repair of descending thoracic aneurysm with TEVAR. 2. Coronary artery disease with history of coronary artery bypass graft. 3. Moderate ischemic cardiomyopathy, functional class 1-2. 4. Hypertension. 5. Hypercholesterolemia. 6. Implantable cardioverter-defibrillator placement. RECOMMENDATIONS AND PLAN: We will continue amiodarone drip, rate is markedly controlled, looks like he may well in fact be looking to convert. We will wean Cardene drip as tolerated. His current medications include I have restarted the Aldactone, Lipitor, losartan, carvedilol 25 b.i.d. We will continue to follow with you. Thank you for asking me to assist in the care of this patient. <ELECTRONICALLY SIGNED> By: Juliano Hurd MD, FACC 12/07/17 1427 2124 0307 Juliano Hurd MD, FACC /nt
[~2017-11-11 05:23] MED LIST changes: +ALDACTONE25 MG PO; +AMARYL2 MG PO; +ATORVASTATIN CA40 MG PO; +AVAPRO300 MG PO; +BESYLATE PO; +FLOMAX0.4 MG PO; +PRILOSEC 10MG C10 MG PO
[2017-11-11 08:45] VITALS: BP 127/82
[2017-11-11 14:30] VITALS: BP 126/49
[2017-11-11 15:00] VITALS: BP 105/65
[2017-11-11 18:41] VITALS: BP 147/56
[2017-11-12] VITALS (9 sets, daily range): BP systolic 98–138; BP diastolic 53–85
[2017-11-12 04:40] LABS: HEMATOCRIT 29.6 % (42.0-52.0); HEMOGLOBIN 9.8 gm/dL (14.0-18.0); MCH 27.3 pg (26.0-34.0); MCHC 33.2 g/dL (28.0-37.0); MCV 82.3 fL (80.0-100.0); RBC 3.6 mil/uL (4.50-6.00); RDW 15.5 % (10.5-14.5); WBC 9.1 thou/uL (4.0-11.0)
[2017-11-12 04:43] LABS: CALCIUM 7.7 mg/dL (8.5-10.1); CREATININE 0.9 mg/dL (0.7-1.3); MAGNESIUM 1.4 mg/dL (1.8-2.4); POTASSIUM 3.9 mmol/L (3.5-5.1)
[2017-11-12 16:47] LABS: POTASSIUM 4.1 mmol/L (3.5-5.1)
[2017-11-13] VITALS (14 sets, daily range): BP systolic 89–111; BP diastolic 55–77
[2017-11-13 06:56] LABS: CALCIUM 8.3 mg/dL (8.5-10.1); MAGNESIUM 1.9 mg/dL (1.8-2.4); POTASSIUM 4.3 mmol/L (3.5-5.1)
[2017-11-13] MEDS ORDERED: PACERONE 200 M200 M1 PO (09:36)
[2017-11-13] MEDS ORDERED: ASPIRIN325 PO (10:17)
[2017-11-13] MEDS ORDERED: HYDROCODONE-AP1 EAC6 PO (10:19)
== END 2017-11-13 14:40 | disposition home or self-care (01) | DRG 220 ==
LOC: ICU 05:23 → TBA 05:23 → PRE 05:31 → ICU 14:17 → PRE 15:08 → 2N 11-13 04:30
PROVIDERS: Nurse Practitioner; Thoracic Surgery (Cardiothoracic Vascular Surgery)
PROC: 02VW3DZ Restriction of Thoracic Aorta, Descending with Intraluminal Device, Percutaneous Approach (ICD-10-PCS; principal; 2017-11-11)
DX: I71.2 Thoracic aortic aneurysm, without rupture (principal); D62 Acute posthemorrhagic anemia; I10 Essential (primary) hypertension; I25.5 Ischemic cardiomyopathy; E78.00 Pure hypercholesterolemia, unspecified; E83.42 Hypomagnesemia; E11.9 Type 2 diabetes mellitus without complications; E78.5 Hyperlipidemia, unspecified; I25.10 Atherosclerotic heart disease of native coronary artery without angina pectoris; I48.91 Unspecified atrial fibrillation; Z95.810 Presence of automatic (implantable) cardiac defibrillator; Z95.1 Presence of aortocoronary bypass graft; Z82.49 Family history of ischemic heart disease and other diseases of the circulatory system
CPT/HCPCS: 10078; 47375; 50010; 50101; 50386; 50455; 51301; 55022; 56524; 56526; 56527; 56639; 57093; 62110; 62900; 64031; 65020; 65040; 65085; 65127; 65128; 70005

== ENCOUNTER → 2017-11-16 | Outpatient (CLI) | payer OTHER ==
[~2017-11-16] MED LIST changes: +ASPIRIN325 PO; +PACERONE 200 M200 M1 PO
== END ==
LOC: ULTRA 13:43
DX: I51.7 Cardiomegaly (principal); M79.621 Pain in right upper arm; M79.89 Other specified soft tissue disorders; I82.611 Acute embolism and thrombosis of superficial veins of right upper extremity; I65.1 Occlusion and stenosis of basilar artery

== ENCOUNTER → 2017-12-17 | Outpatient (CLI) | payer OTHER ==
[2017-12-17 08:27] LABS: CREATININE 1.1 mg/dL (0.7-1.3)
== END ==
LOC: CAT 07:52
PROVIDERS: Nuclear Medicine Nuclear Cardiology
DX: I71.2 Thoracic aortic aneurysm, without rupture (principal); N28.1 Cyst of kidney, acquired; Z98.890 Other specified postprocedural states; Z86.79 Personal history of other diseases of the circulatory system

== ENCOUNTER → 2018-03-30 | Outpatient (CLI) | payer OTHER ==
[2018-03-30 08:22] LABS: CREATININE 1.9 mg/dL (0.7-1.3)
== END ==
LOC: CAT 07:07
PROVIDERS: Nurse Practitioner
DX: I71.2 Thoracic aortic aneurysm, without rupture (principal); I70.0 Atherosclerosis of aorta; K44.9 Diaphragmatic hernia without obstruction or gangrene; J98.4 Other disorders of lung

== ENCOUNTER 2019-09-12 10:44 | Inpatient (IN) | payer OTHER ==
[~2019-09-12] VITALS: Ht 182.9 cm; Wt 83.9 kg
[2019-09-12] MEDS ORDERED: ASA81BEC PO ×2 (12:34→13:50)
[2019-09-12 13:05] LABS: ABSOLUTE NEUTROPHILS 4.2 thou/uL (1.4-8.2); BASOPHILS 0.9 % (0.0-2.0); EOSINOPHILS 1.6 % (0.0-3.0); HEMATOCRIT 40.2 % (42.0-52.0); HEMOGLOBIN 12.9 gm/dL (14.0-18.0); LYMPHOCYTES 14.4 % (24.0-44.0); MCH 27.8 pg (26.0-34.0); MCHC 32.1 g/dL (28.0-37.0); MCV 86.7 fL (80.0-100.0); MONOCYTES 7.5 % (1.0-8.0); PLATELET COUNT 211 thou/uL (150-400); POLYS 75.6 % (36.0-66.0); RBC 4.64 mil/uL (4.50-6.00); WBC 5.5 thou/uL (4.0-11.0)
[2019-09-12] MEDS ORDERED: XARELTO20 MG PO (13:26)
[2019-09-12] MEDS ORDERED: TORSEMIDE20 MG PO (13:27)
[2019-09-12 13:32] LABS: ALBUMIN 3.2 g/dL (3.4-5.0); ANION GAP 11 mmol/L (7-16); BUN 21 mg/dL (7-18); CALCIUM 9.4 mg/dL (8.5-10.1); CHLORIDE 106 mmol/L (98-107); CO2 24 mmol/L (21-32); CREATININE 1.1 mg/dL (0.7-1.3); GLUCOSE 138 mg/dL (74-106); POTASSIUM 4.7 mmol/L (3.5-5.1); SGOT 21 U/L (15-37); SGPT 28 U/L (30-65); SODIUM 141 mmol/L (136-145); TOTAL BILIRUBIN 0.5 mg/dL (<0.1-1.0); TOTAL PROTEIN 7.5 g/dL (6.4-8.2); TROPONIN-I <0.06 ng/mL (<0.06)
[2019-09-12 13:38] VITALS: BP 130/76
[2019-09-12] MEDS ORDERED: SIMVASTATIN80 MG PO (13:54)
[2019-09-12] MEDS ORDERED: DIGOX250 MCG PO (13:55)
[2019-09-12] MEDS ORDERED: REGLAN 5 MG TAB5 MG PO (13:56)
[2019-09-12] MEDS ORDERED: AMARYL4 MG PO (13:56)
[2019-09-12] MEDS ORDERED: LEVEMIR100 UNIT/2 SUBQ (13:57)
[2019-09-12] MEDS ORDERED: METFORMIN HCL500 M3 PO (13:58)
[2019-09-12] MEDS ORDERED: JANUVIA100 MG PO (13:59)
--- NOTE | 2019-09-12 14:04 | H ---
[facility] [place] [address] [place] [address] HISTORY AND PHYSICAL Name: SHANDA HAIR Adams Room #: 433-I ADM IN ..#: [id number] Admission: 09/12/19 Attend Phys: Jorge Akins MD Discharge: Date of : 59 Report #: [id number] THIS REPORT FOR: //name// CC: Serafin Akins DATE OF SERVICE: 09/12/2019 CHIEF COMPLAINT: Elevated blood sugars and fever. HISTORY OF PRESENT ILLNESS: The patient is a 64-year-old gentleman with multiple medical problems, who was admitted from the office today with fever and chills and recent elevated blood sugars. He said last Thursday he developed fever and chills and the following day he just felt ill. He had some cough and congestion that lasted about a day and since he has just had more of a dry cough. He said the chills have resolved, but he just feels generally weak. He is also noted to have uncontrolled diabetes type 2 with a recent A1c in the office of 12%. Insulin has been prescribed, but he says he "ran out" and did not have any at home, although he said he took a dose last night, but cannot remember the quantity. PAST MEDICAL HISTORY: Coronary artery disease with cardiac bypass in 2004, ischemic cardiomyopathy, EF 30%, history of cardiac defibrillator, hypertension, dyslipidemia, history of thoracic and abdominal aneurysm. PAST SURGICAL HISTORY: As above. FAMILY HISTORY: Noncontributory. SOCIAL HISTORY: Denies chronic alcohol or tobacco use. ALLERGIES: None. MEDICATIONS: Amaryl 4 mg, Reglan 5 mg, digoxin 0.25 mg, aspirin 81 mg, Coreg 25 mg b.i.d., Prilosec, multivitamin, fish oil, Zocor 40 mg, Demadex 20 mg, Aldactone 25 mg, Xarelto 20 mg, irbesartan 300 mg, Januvia 100 mg, metformin 500 mg twice a day and Levemir 25 units at bedtime. REVIEW OF SYSTEMS: Denies headache, chest pain, shortness of breath, abdominal pain, nausea, vomiting, diarrhea, constipation, dysuria, syncope. OBJECTIVE: VITAL SIGNS: Temperature 36.6, pulse 86, respirations 18, blood pressure 130/76, O2 sat 99% on room air. GENERAL: He is awake, alert, in no distress. LUNGS: Clear. [address] [place] [address] HISTORY AND PHYSICAL Name: SHANDA HAIR Room #: 433-I [facility] IN [facility].#: [id number] Admission: 09/12/19 Attend Phys: Jorge Akins MD Discharge: Date of : 59 Report #: [id number] HEART: Regular. ABDOMEN: Soft, normoactive bowel sounds. EXTREMITIES: No edema. NEUROLOGIC: Intact. Strength intact. LABORATORY DATA: His white count is 5. Glucose was 138. BNP was 3700. Albumin 3.2. ASSESSMENT: 1. Uncontrolled diabetes type 2. 2. Ischemic cardiomyopathy. 3. Fever. 4. Coronary artery disease. PLAN: We will rule out infectious processes with additional cultures, labs and x-ray, hold off on empiric antibiotics at this point as he has no elevated white count or fever. Cardiology service knows him well and some repeat studies will be obtained. It is unclear how he was not using insulin at home. We will start back on oral meds and follow his blood sugars and then add medications as needed. <ELECTRONICALLY SIGNED> By: Jorge Akins MD 09/12/19 1404 1353 1402 Jorge Akins MD /nt
[2019-09-12 15:28] LABS: URINE BILIRUBIN NEGATIVE (Negative); URINE BLOOD 3+ (Negative); URINE CLARITY CLEAR; URINE COLOR YELLOW; URINE GLUCOSE-RANDOM* 2+ (Negative); URINE KETONES NEGATIVE (Negative); URINE LEUKOCYTES-REFLEX NEGATIVE (Negative); URINE NITRITE-REFLEX NEGATIVE (Negative); URINE PROTEIN (DIPSTICK) NEGATIVE (Negative); URINE UROBILINOGEN 0.2 E.U./dl (0.2-1.0)
[2019-09-12 15:39] LABS: CASTS None Seen /LPF (None Seen); SQUAMOUS 0-3 Few /LPF (0-3); URINE RBC >20 Many /HPF (0-2); URINE WBC-REFLEX 0-5 Rare /HPF (0-5)
[2019-09-12 15:40] LABS: BACTERIA-REFLEX None Seen /HPF (None Seen); CRYSTALS None Seen /LPF (None Seen)
[2019-09-12 20:00] VITALS: BP 108/69
--- NOTE | 2019-09-13 04:03 | NUR ---
ASSUMED PT CARE AROUND 1900. A&OX4. PT IS UP AD KENYA AROUND THE ROOM WITH A STEADY GAIT. NO C/O WEAKNESS OR SOA. VSS. PT SLEPT MOST OF THE NIGHT. NO MAJOR COMPLAINTS THIS SHIFT. PROGRESSING TOWARD POC GOALS. WILL CONTINUE TO MONITOR FURTHER.
[2019-09-13 08:33] VITALS: BP 110/68
--- NOTE | 2019-09-13 08:42 | EKG ---
[address] [place] [address] ELECTROCARDIOGRAM REPORT Name: SHANDA HAIR Room #: 433-I ADM IN M.R.#: [id number] Admission: 09/12/19 Attend Phys: Jorge Akins MD Discharge: Date of : 59 Report #: [id number] THIS REPORT FOR: //name// [facility] Test Date: 2019-09-12 Test Time: 13:13:00 Pat Name: SHANDA HAIR Department: Room: 433 I Gender: M Sugar Laboratory Assistant: Niya ANN : 1955 Requested By: Pattie Castillo Order Number: [id number] MD: Alirio Grayson Measurements Intervals [place] Rate: 70 P: 7 [place]: 187 QRS: -43 QRSD: 126 T: 145 QT: 398 QTc: 430 Interpretive Statements Sinus rhythm LVH with IVCD, LAD and secondary repol abnrm Inferior infarct, old Compared to ECG 10/13/2017 17:12:15 Left ventricular hypertrophy now present Early repolarization now present Ventricular premature complex(es) no longer present Atrial abnormality no longer present Myocardial infarct finding still present Electronically Signed On 09-13-2019 8:42:17 ENDLESS TRACK VEHICLE SUPERVISOR by Alirio Grayson [email or web address] <ELECTRONICALLY SIGNED> By: Alirio Grayson MD 09/13/19 0842 1313 1313 Alirio Grayson MD /EPI
--- NOTE | 2019-09-13 12:32 | NUR ---
PT A&OX4. IV INTACT IN R AC. AMBULATES SELF IN ROOM. TOLERATING PO WELL. MONITORING BLOOD SUGARS SEE FLOW. DENIES ANP PAIN, ON RA. WILL CONT POC.
--- NOTE | 2019-09-13 14:27 | NUR ---
PT ADMITTED RELATED TO PNEUMONIA, DIABETES. CM REVIEWED CHART AND SPOKE WITH CARE TEAM. CM MET WITH PT AT BEDSIDE THIS DAY. PT IS A&O X4. CM ROLE INTRODUCED. PT INDICATED HE LIVES ALONE IN AN APARTMENT WITH 3 STEPS TO ENTER AND NO STEPS INSIDE. 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 PT INDICATED NO DME OR HH HX. PT INDICTED HE HAS SUPPLIES TO TEST AND NONITOR HIS BLOOD SUGARS IN THE HOME ENVIROMENT. PT INDICATED HE PLANS TO RETURN HOME ONCE MEDICALLY STABLE. CM TO FOLLOW INDICATED WITH DC PLANNING.
[2019-09-13 16:25] VITALS: BP 107/67
[2019-09-13 20:00] VITALS: BP 92/59
[2019-09-14 04:00] VITALS: BP 101/68
--- NOTE | 2019-09-14 06:24 | NUR ---
Received report from off going RN and assumed patient care at 1900. Patient is AAOx4, VSS, and up ad delores. Patient voiced no concerns or complaints during this shift. Plan is for discharge today.
[2019-09-14 08:00] VITALS: BP 136/71
[2019-09-14 08:19] VITALS: BP 112/58
[2019-09-14] MEDS ORDERED: METFORMIN HCL500 M3 PO (13:19)
[2019-09-14] MEDS ORDERED: JARDIANCE10 MG PO (13:20)
[2019-09-14 14:39] VITALS: BP 112/58
--- NOTE | 2019-09-14 18:33 | NUR ---
PT ALERT AND ORIENTED TIMES FOUR. VSS, 98%RA. PT DENIES PAIN/SOA. PT UP AB KENYA. PT TOLERATES MEDS AND MEALS. PT PROGRESSING TOWRADS POC GOALS.
--- NOTE | 2019-09-15 09:45 | D ---
[facility] [place] [address] [place] [address] DISCHARGE SUMMARY Name: SHANDA HAIR Adams Room #: 433-I [facility] IN ..#: [id number] Admission: 09/12/19 Attend Phys: Jorge Akins MD Discharge: 09/14/19 Date of : 59 Report #: [id number] THIS REPORT FOR: //name// CC: Serafin Akins FINAL DIAGNOSES: 1. Uncontrolled diabetes type 2. 2. Coronary artery disease. 3. Ischemic cardiomyopathy. 4. Fever. HOSPITAL COURSE: The patient was admitted with fever and uncontrolled diabetes. Recent A1c was 12% through the office. It is unclear what his regimen at home was. I resumed his oral medication and his blood sugars were stable in the mid-100s. He was placed on a diabetic diet. Diabetic education through the dietitian was ordered as well. He also had a concern with fever. He had no fever during his stay. He had a normal white count. Chest x-ray was negative and urinalysis was negative. PHYSICAL EXAMINATION: GENERAL: On the day of discharge, he was awake and alert. VITAL SIGNS: Stable vital signs. Blood sugar ranging 142-186. LUNGS: Clear. HEART: Regular. ABDOMEN: Soft, normoactive bowel sounds. EXTREMITIES: No edema. DISPOSITION: He is discharged to home with diabetic diet, activity as tolerated. Followup with Dr. Almonte and Dr. Hurd within 2 weeks. DISCHARGE MEDICATIONS: Jardiance 10 mg, Coreg 25 mg twice a day, fish oil, Prilosec, irbesartan 300 mg, Aldactone 25 mg, Amaryl 2 mg at bedtime and 4 mg in the morning, hydrocodone, Xarelto 20 mg, Demadex 20 mg, aspirin 81 mg, Zocor 40 mg, digoxin 0.25 mg, Januvia 100 mg daily, metformin 500 mg b.i.d. <ELECTRONICALLY SIGNED> By: Jorge Akins MD 09/15/19 0945 1358 1435 Jorge Akins MD /nt
== END 2019-09-14 17:01 | disposition home or self-care (01) | DRG 639 ==
LOC: 4S 10:44 → ENTRNSPT 09-14 16:29 → 4S 09-14 17:01
PROVIDERS: ADMIT Internal Medicine Geriatric Medicine
PROC: 4B02XTZ Measurement of Cardiac Defibrillator, External Approach (ICD-10-PCS; principal; 2019-09-12)
DX: E11.65 Type 2 diabetes mellitus with hyperglycemia (principal); I25.10 Atherosclerotic heart disease of native coronary artery without angina pectoris; R50.9 Fever, unspecified; I25.5 Ischemic cardiomyopathy; I48.0 Paroxysmal atrial fibrillation; I10 Essential (primary) hypertension; E78.5 Hyperlipidemia, unspecified; E78.00 Pure hypercholesterolemia, unspecified; Z95.1 Presence of aortocoronary bypass graft; Z95.810 Presence of automatic (implantable) cardiac defibrillator; Z79.84 Long term (current) use of oral hypoglycemic drugs; Z79.82 Long term (current) use of aspirin; Z79.899 Other long term (current) drug therapy; Z79.891 Long term (current) use of opiate analgesic; Z87.01 Personal history of pneumonia (recurrent); Z82.49 Family history of ischemic heart disease and other diseases of the circulatory system; Z82.3 Family history of stroke; Z81.8 Family history of other mental and behavioral disorders; Z95.828 Presence of other vascular implants and grafts; Z79.4 Long term (current) use of insulin
CPT/HCPCS: 10102

== ENCOUNTER → 2020-01-10 | Outpatient (CLI) | payer OTHER ==
[~2020-01-10] MED LIST changes: +AMARYL4 MG PO; +ASA81BEC PO; +DIGOX250 MCG PO; +JANUVIA100 MG PO; +JARDIANCE10 MG PO; +LEVEMIR100 UNIT/2 SUBQ; +METFORMIN HCL500 M3 PO; +REGLAN 5 MG TAB5 MG PO; +SIMVASTATIN80 MG PO; +TORSEMIDE20 MG PO; +XARELTO20 MG PO
== END ==
LOC: SJCVCIMAG 08:49
DX: I25.5 Ischemic cardiomyopathy (principal); I44.7 Left bundle-branch block, unspecified; I25.10 Atherosclerotic heart disease of native coronary artery without angina pectoris; I48.91 Unspecified atrial fibrillation; E78.5 Hyperlipidemia, unspecified; E11.9 Type 2 diabetes mellitus without complications; I10 Essential (primary) hypertension; I71.2 Thoracic aortic aneurysm, without rupture; Z95.1 Presence of aortocoronary bypass graft; Z95.810 Presence of automatic (implantable) cardiac defibrillator; Z79.899 Other long term (current) drug therapy

== ENCOUNTER → 2021-03-20 | Outpatient (CLI) | payer OTHER ==
[2021-03-20 10:00] LABS: CALCIUM 8.9 mg/dL (8.5-10.1); CREATININE 1.4 mg/dL (0.7-1.3); POTASSIUM 3.9 mmol/L (3.5-5.1)
== END ==
LOC: SJCVCIMAG
PROVIDERS: ATTEND Internal Medicine Cardiovascular Disease
DX: I08.3 Combined rheumatic disorders of mitral, aortic and tricuspid valves (principal); I48.91 Unspecified atrial fibrillation; I71.2 Thoracic aortic aneurysm, without rupture; I25.10 Atherosclerotic heart disease of native coronary artery without angina pectoris; I42.9 Cardiomyopathy, unspecified; I25.2 Old myocardial infarction; I27.20 Pulmonary hypertension, unspecified; R59.0 Localized enlarged lymph nodes; J98.11 Atelectasis; J98.4 Other disorders of lung; M47.819 Spondylosis without myelopathy or radiculopathy, site unspecified; Z95.1 Presence of aortocoronary bypass graft; Z95.0 Presence of cardiac pacemaker

== ENCOUNTER 2021-04-17 09:50 | Inpatient (IN) | payer OTHER ==
[~2021-04-17] VITALS: Ht 182.9 cm; Wt 76.7 kg
[~2021-04-17 09:50] MED LIST changes: -ALDACTONE25 MG PO; +SPIRONOLACTONE25 M1 PO
[2021-04-17 09:56] VITALS: BP 132/74
[2021-04-17 10:32] LABS: ABSOLUTE NEUTROPHILS 10.8 thou/uL (1.4-8.2); BASOPHILS 0.3 % (0.0-2.0); HEMATOCRIT 46.2 % (42.0-52.0); HEMOGLOBIN 14.8 gm/dL (14.0-18.0); LYMPHOCYTES 6.2 % (24.0-44.0); MCH 26.9 pg (26.0-34.0); MCHC 32.1 g/dL (28.0-37.0); PLATELET COUNT 183 thou/uL (150-400); POLYS 83.5 % (36.0-66.0); RDW 17.6 % (10.5-14.5); WBC 12.9 thou/uL (4.0-11.0)
--- NOTE | 2021-04-17 10:45 | NUR ---
REVIEWED TRIAGE NOTE, AGREE WITH ASSESSMENT. PT NOTES HE WAS FEELING FINE UP UNTIL ABOUT X2 DAYS AGO AND NOTES GENERALIZED WEAKNESS AND DECREASED APPETITE. PT NOTES A COUPLE EPISODES OF VOMITING AND DIARRHEA YESTERDAY BUT DENIES NAUSEA OR ABDOMINAL PAIN TODAY. PT DENIES BLOOD IN VOMIT OR STOOL. PT NOTES SOB WITHE EXERTION. PT DENIES CP. PT LUNGS CLEAR BILATERALLY. PT ABDOMEN IS SOFT AND NON TENDER TO THE TOUCH, BOWEL SOUNDS PRESENT. PT APPEARS DUSKY IN THE FACE AND PALE THROUGHOUT THE REST OF THE BODY. PT STATES HX OF ANEMIA BUT DENIES BLOOD TRANSFUSIONS IN THE PAST. PT DENIES RECENT FALLS. PT IS ALERT AND ORIENTED X4, PT REED, PT SKIN WARM AND DRY, PT VSS ON RA, CALL LIGHT ENCOURAGED TO USE
[2021-04-17 10:48] LABS: URINE BILIRUBIN NEGATIVE (Negative); URINE BLOOD TRACE (Negative); URINE CLARITY CLEAR; URINE COLOR YELLOW; URINE GLUCOSE-RANDOM* 3+ (Negative); URINE KETONES 1+ (Negative); URINE LEUKOCYTES-REFLEX NEGATIVE (Negative); URINE NITRITE-REFLEX NEGATIVE (Negative); URINE PROTEIN (DIPSTICK) NEGATIVE (Negative); URINE SPECIFIC GRAVITY 1.025 (1.005-1.035); URINE UROBILINOGEN 0.2 E.U./dl (0.2-1.0)
[2021-04-17 11:06] LABS: ANION GAP 12 mmol/L (7-16); BUN 20 mg/dL (7-18); CHLORIDE 103 mmol/L (98-107); CO2 22 mmol/L (21-32); CREATININE 1.3 mg/dL (0.7-1.3); GLUCOSE 163 mg/dL (74-106); POTASSIUM 4.9 mmol/L (3.5-5.1); SODIUM 137 mmol/L (136-145)
[2021-04-17 11:17] LABS: ALBUMIN 3.4 g/dL (3.4-5.0); SGOT 17 U/L (15-37); SGPT 22 U/L (16-63); TOTAL BILIRUBIN 1.5 mg/dL (0.2-1.0); TOTAL PROTEIN 6.8 g/dL (6.4-8.2); TROPONIN-I <0.06 ng/mL (<0.06)
[2021-04-17 16:01] VITALS: BP 118/79
--- NOTE | 2021-04-17 16:22 | NUR ---
ATTEMPTED TO CALL REPORT AT THIS TIME
[2021-04-17 16:37] VITALS: BP 122/74
[2021-04-17 17:04] VITALS: BP 109/74
[2021-04-17 19:29] VITALS: BP 131/76
--- NOTE | 2021-04-17 20:12 | NUR ---
PATIENT ARRIVED TO UNIT AT APPROX 1700. VITALS STABLE FOR BASELINE, ABX INFUSING ON L FA. PATIENT BEGAN TO VOICE DYSPNEA. HX OF DIURETICS. ALLEY WORKER NOTIFIED AND ORDERED CXR. PATIENT NOW ON 2L FOR COMFORT. PATIENT DENIED FURTHER NEEDS OTHER THAN TROUBLE BREATHING. ENDORSED TO ONCOMING NURSE
[2021-04-18 03:52] VITALS: BP 103/65
--- NOTE | 2021-04-18 05:57 | NUR ---
patient aox4 makes needs know. patient had several loose stool this shift. patient incontient this shift pericare and barrier cream applied as needed.patientc/o soa called apartment rental clerk new order of chest x ray and change fluid infusion to 75 ml/hr x 1 bag. . patient denied pain or discomfort. patient been npo since midnight. fall precaution in place. patient in bed asleep at this time breathing regular and unlaboured.
--- NOTE | 2021-04-18 07:24 | EKG ---
[place] [address] [place] [address] ELECTROCARDIOGRAM REPORT Name: SHANDA HAIR Room #: 459-P ADM IN M.R.#: [id number] Admission: 04/17/21 Attend Phys: Kia Robertson Discharge: Date of : 59 Report #: [id number] [facility] ED Test Date: 2021-04-17 Test Time: 10:01:43 Pat Name: SHANDA HAIR Department: Room: 459 Gender: M Senior Policy Analyst: : 1955 Requested By: Dahiana Valverde Order Number: [id number] MD: Cristobal Wilson Measurements Intervals [place] Rate: 115 P: NE: QRS: -63 QRSD: 144 T: 114 QT: 351 QTc: 486 Interpretive Statements AFIB IVCD, consider atypical RBBB LVH with IVCD, LAD and secondary repol abnrm Probable RV involvement, suggest recording right precordial leads Compared to ECG 09/12/2019 13:13:00 AV block, advanced (high-grade) now present Sinus rhythm no longer present Electronically Signed On 04-18-2021 7:24:47 CDT by Cristobal Wilson [email or web address] <ELECTRONICALLY SIGNED> By: Cristobal Wilson MD, [facility] 04/18/21 0724 1001 100 Cristobal Wilson MD, [facility] /EPI
[2021-04-18 07:35] VITALS: BP 149/85
[2021-04-18 10:05] LABS: ABSOLUTE NEUTROPHILS 8.6 thou/uL (1.4-8.2); BASOPHILS 0.1 % (0.0-2.0); HEMATOCRIT 40.1 % (42.0-52.0); LYMPHOCYTES 5.1 % (24.0-44.0); MCH 27.3 pg (26.0-34.0); MCHC 32.5 g/dL (28.0-37.0); MCV 83.9 fL (80.0-100.0); MONOCYTES 9.6 % (1.0-8.0); PLATELET COUNT 142 thou/uL (150-400); POLYS 85.2 % (36.0-66.0); RBC 4.78 mil/uL (4.50-6.00); RDW 17.9 % (10.5-14.5); WBC 10.1 thou/uL (4.0-11.0)
[2021-04-18 10:20] LABS: CALCIUM 8.6 mg/dL (8.5-10.1); CREATININE 1.1 mg/dL (0.7-1.3); POTASSIUM 4.4 mmol/L (3.5-5.1)
--- NOTE | 2021-04-18 15:33 | NUR ---
PT ADMITTED RELATED TO ACUTE CHOLECYSTITIS/WEAKNESS/SEVERE SEPSIS. CM REVIEWED CHART AND SPOKE WITH CARE TEAM THIS DAY. CM MET WITH PT AT BEDSIDE. PT APPEARED TO BE A&O X4. CM ROLE INTRODUCED. PT INDICATED HE LIVES ALONE IN AN APARTMENT WITH NO STEPS TO ENTER AND NO STEPS INSIDE. 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 PT INDICATED NO HH OR OP HX. PT CONFIRMED PCP IS DR. TOAN GAYLE. PT INDICATED HE PLANS TO RETURN HOME ONCE MEDICALLY STABLE. CM FOLLOWING REGARDING POSSIBLE DC NEEDS. PT HAS SURGERY CONSULTED.
[2021-04-18 17:00] VITALS: BP 112/84
[2021-04-18 19:24] VITALS: BP 119/79
--- NOTE | 2021-04-18 20:10 | NUR ---
Assumed pt care at 7am.Pt in bed most ot the time today sleeping on and off and sometimes restless while awake.Assessment completed. vss but hr sometimes elevated whenever coughing.P t kept npo till seen by Dr Manrique.He was later resume diet when Dr Manrique said that pt doesn't need surgery.Dr Sibley here,order noted.Pt dc'd piv and was replaced by iv team.Pt on o2 at 1L nc. Willl continue to monitor.
--- NOTE | 2021-04-19 02:35 | NUR ---
patient c/o insomnia,new order of melatonin. patient denied anxiety. patient incontient this shift pericare and barrier cream applied as needed. fall precaution in place. patient in bed asleep at this time breathing regular and unlaboured.
[2021-04-19 04:39] VITALS: BP 103/66
[2021-04-19 07:40] VITALS: BP 113/77
--- NOTE | 2021-04-19 12:04 | 2DMMODE ---
[facility] [address] [place] [address] 2 D/M-MODE ECHOCARDIOGRAM Name: SHANDA HAIR Adams Room #: 459-P ADM IN M.R.#: [id number] Admission: 04/17/21 Attend Phys: Kia Robertson Discharge: Date of : 59 Report #: [id number] THIS REPORT FOR: cc: Serafin Almonte MD, Christopher B. MD Park, Jin S. MD ~ APPROVED REPORT Study performed: 04/19/2021 08:47:29 EXAM: Comprehensive 2D, Doppler, and color-flow Echocardiogram with contrast Patient Location: Bedside Room #: 459 Status: routine BSA: 1.78 HR: 97 bpm BP: 113/77 mmHg Rhythm: Atrial Fibrillation Other Information Study Quality: Good Indications Congestive Heart Failure Diabetes Atrial Fibrillation CAD Cardiomyopathy Hypertension/HDD AICD Echo Enhancing Agent Indication: Endocardial border delineation Agent(s) / Amount(s) Used: Optison 3 cc 2D Dimensions RVDd: 47.99 mm IVSd: 7.53 (7-11mm) LVOT Diam: 26.07 (18-24mm) LVDd: 62.96 mm PWd: 10.19 (7-11mm) Ascending Ao: 44.05 (22-36mm) LVDs: 59.47 (25-40mm) Aortic Root: 37.57 mm IVC: 28.00 mm Volumes [facility] [address] [place] [address] 2 D/M-MODE ECHOCARDIOGRAM Name: SHANDA HAIR Adams Room #: 459-P ADM IN M.R.#: [id number] Admission: 04/17/21 Attend Phys: Kia Monterroso Discharge: Date of : 59 Report #: [id number] Left Atrial Volume (Systole) Single Plane 4CH: 70.81 mL Single Plane 2CH: 67.78 mL LA ESV Index: 42.00 mL/m2 Aortic Valve AoV Peak Blaise.: 0.94 m/s AO Peak Gr.: 3.54 mmHg LVOT Max P.87 mmHg LVOT Max V: 0.47 m/s ARABELLA Vmax: 2.65 cm2 AI Vmax: 4.27 m/s AI Dawson: 2.79 m/s2 AI PHT: 459.09 ms Mitral Valve MV Decel. Time: 177.87 ms MV E Max Blaise.: 0.80 m/s IVRT: 83.04 ms Pulmonary Valve PV Peak Blaise.: 0.63 m/s PV Peak Gr.: 1.59 mmHg Tricuspid Valve TR Peak Blaise.: 3.98 m/s RAP Estimate: 15.00 mmHg TR Peak Gr.: 63.47 mmHg PA Pressure: 78.00 mmHg Left Ventricle Left ventricle is dilated. There is global hypokinesis of the left ventricle. There is normal left ventricular wall thickness. Left ventricular systolic function is severely decreased. LVEF is 20%. This study is not technically sufficient to allow evaluation of the LV diastolic function due to atrial fibrillation. Right Ventricle Right ventricle is dilated. Right ventricle is hypokinetic. Atria Left atrium is moderately dilated. Right atrium is moderately dilated. Aortic Valve The Aortic valve is sclerotic. Mild to moderate aortic regurgitation. There is no aortic valvular stenosis. Mitral Valve [facility] [address] [place] [address] 2 D/M-MODE ECHOCARDIOGRAM Name: SHANDA HAIR Adams Room #: 459-P [facility] IN .R.#: [id number] Admission: 04/17/21 Attend Phys: Kia Monterroso Discharge: Date of : 59 Report #: [id number] The mitral valve is normal in structure. Moderate mitral regurgitation. No evidence of mitral valve stenosis. Tricuspid Valve The tricuspid valve is normal in structure. Moderate tricuspid regurgitation. PAP is estimated at 60 mmHg. Pulmonic Valve The pulmonary valve is normal in structure. Mild pulmonic regurgitation. Great Vessels The aortic root is normal in size. The ascending aorta is mildly dilated at 4.4 cm. IVC is dilated and collapses <50% with inspiration. Pericardium There is no pericardial effusion. <Conclusion> Left ventricle is dilated. There is normal left ventricular wall thickness. Left ventricular systolic function is severely decreased. Right ventricle is dilated. Left atrium is moderately dilated. Mild to moderate aortic regurgitation. Moderate mitral regurgitation. Moderate tricuspid regurgitation. PAP is estimated at 60 mmHg. <ELECTRONICALLY SIGNED> By: Samir Miramontes MD 04/19/21 1204 03 03 Samir Miramontes MD /INF
[2021-04-19 15:30] VITALS: BP 107/72
[2021-04-19 19:54] VITALS: BP 108/68
--- NOTE | 2021-04-19 20:22 | NUR ---
ASSUMED CARE AT SHIFT CHANGE. ASSESSMENT CHARTED. MEDICATIONS ADMINISTERED PER EMAR. VSS. PATIENT IS ALERT X3-4 AND DOES CALL OUT NEEDED. PATIENT DENIES PAIN BUT C/O SOA FOR MOST OF SHIFT. VITALS REMAIN STABLE & OXYGEN SAT REMAINS 95-98% ON 2L. PROVIDER NOTIFIED AND ORDERED LORAZEPAM NEEDED; SEEMING TO HELP PATIENT. PROVIDERS DECIDED PATIENT WOULD NOT BENEFIT FROM SX. PATIENT STILL BEING EVALUATED BY PT/OT; MAY BENEFIT FROM HOME HEALTH. PATIENT FAMILY VISTED AND INSISTS ON SPEAKING W HOSPITALIST ABOUT PLAN. WILL UPDATE CONTACT INFO SINCE UNCLE IS ELDERLY. ENDORSED TO ONCOMING NURSE
[2021-04-20 05:42] LABS: HEMATOCRIT 35.3 % (42.0-52.0); HEMOGLOBIN 11.7 gm/dL (14.0-18.0); MCH 27.2 pg (26.0-34.0); MCHC 33.1 g/dL (28.0-37.0); MCV 82.3 fL (80.0-100.0); RBC 4.29 mil/uL (4.50-6.00); WBC 5.8 thou/uL (4.0-11.0)
[2021-04-20 06:05] LABS: ALBUMIN 2.8 g/dL (3.4-5.0); CALCIUM 8.3 mg/dL (8.5-10.1); CREATININE 1.1 mg/dL (0.7-1.3); POTASSIUM 3.3 mmol/L (3.5-5.1); TOTAL BILIRUBIN 1.4 mg/dL (0.2-1.0); TOTAL PROTEIN 6.2 g/dL (6.4-8.2)
--- NOTE | 2021-04-20 06:27 | NUR ---
Assumed pt care at 1900. A/OX4 with forgetfulness.needs reminders to call for help before getting out of bed. VSS. Denies pain on assessment. Pt less anxious tonight after Ativan given at 1800, no c/o SOA. Up with AX1 to bathroom,continent of B&B,yellow loose BM X1. Arrythmia on telemetry. Resting quietly w/o distress,oxygen on at 2L/NC for comfort. Fall precautions in place,will continue to monitor pt.
[2021-04-20 08:08] VITALS: BP 108/58
--- NOTE | 2021-04-20 17:42 | NUR ---
PT IS A&O*4. ROOM AIR AFTER RT EVALUATION NO OXYGEN NEEDED. PT USE CALL LIGHT FOR STAND BY ASSIST WHILE AMBULATE TO ROOM BATHROOM. NO PAIN REPROTED OR NO ANXIETY MEDICATION REQUESTED. PT WORKED WITH PT AND WALKED THROUGH DOWN HALLWAY. PT WAS UNSTEADY BUT TOLERANCE WELL. PT COULD SELF-TURN AND HELPED HIM UP TO CHAIR ONCE. UO MONITORED. IV ABX GIVEN PER ORDER. POSTASSIUM GIVEN THIS MORNING FOR LOW POTASSIUM LEVEL. HEART RHYTHM A- FLUTTER WITH HR BETWEEN 95 TO 100. BP MEDICATION HAVE BEEN HOLD DUE TO LOW BP. WILL KEEP MONITOR PATIENT'S SAFETY, I&O, HEART RHYTHM AND VITALS UNTIL SHIFT CHANGE.
[2021-04-20 21:54] VITALS: BP 136/81
--- NOTE | 2021-04-21 05:36 | NUR ---
patient had anxiety this shift. prn given. patient had a shower. patient calm and cooperative with care and meds. fall precaution in place. patient in bed asleep at this time breathing regular and unlaboured.
[2021-04-21 05:38] LABS: ABSOLUTE NEUTROPHILS 3.9 thou/uL (1.4-8.2); BASOPHILS 0.3 % (0.0-2.0); EOSINOPHILS 0.6 % (0.0-3.0); HEMATOCRIT 36.9 % (42.0-52.0); HEMOGLOBIN 12.1 gm/dL (14.0-18.0); LYMPHOCYTES 14.7 % (24.0-44.0); MCH 27.2 pg (26.0-34.0); MCHC 32.9 g/dL (28.0-37.0); MCV 82.7 fL (80.0-100.0); MONOCYTES 7.5 % (1.0-8.0); PLATELET COUNT 132 thou/uL (150-400); POLYS 76.9 % (36.0-66.0); RBC 4.47 mil/uL (4.50-6.00); RDW 17.5 % (10.5-14.5); WBC 5.1 thou/uL (4.0-11.0)
[2021-04-21 05:49] LABS: INR 1.11
[2021-04-21 05:53] LABS: ALBUMIN 2.7 g/dL (3.4-5.0); CALCIUM 8.5 mg/dL (8.5-10.1); MAGNESIUM 1.9 mg/dL (1.8-2.4); POTASSIUM 3.7 mmol/L (3.5-5.1); TOTAL BILIRUBIN 0.9 mg/dL (0.2-1.0); TOTAL PROTEIN 6.2 g/dL (6.4-8.2)
[2021-04-21 07:40] VITALS: BP 115/72
--- NOTE | 2021-04-21 14:28 | NUR ---
PT IS A&O*4, FORGETFUL. ROOM AIR. STAND BY ASSISTANCE FOR BATHROOM. TELE CALLED AROUNG 13:[address] ELEVATION. CALLED AROUNG 2:00. WARREN AND LABS ORDERED. WARREN SHOWING NO ST ELEVATION. WILL WAIT FOR LAB RESULTS COME BACK AND KEEP MONITOR PATIENT'S SAFETY.
[2021-04-21 15:48] LABS: ANION GAP 11 mmol/L (7-16); BUN 23 mg/dL (7-18); CALCIUM 8.5 mg/dL (8.5-10.1); CHLORIDE 100 mmol/L (98-107); CO2 26 mmol/L (21-32); CREATININE 1.1 mg/dL (0.7-1.3); GLUCOSE 355 mg/dL (74-106); MAGNESIUM 1.8 mg/dL (1.8-2.4); POTASSIUM 3.5 mmol/L (3.5-5.1); SODIUM 137 mmol/L (136-145); TROPONIN-I <0.06 ng/mL (<0.06)
[2021-04-21 16:21] VITALS: BP 115/71
--- NOTE | 2021-04-21 16:59 | NUR ---
PT NITRO LEVEL CAME BACK NEGATIVE. PT BLOOD SUAGR HAVE TWO TIME GREATER THAN 250 IN PAST 24 HOURS, CHANGE THE INSLULIN FROM LOW DOSE SLIDING DOSE TO MODERATE SLIDING DOSE. WILL KEEP MONITOR PATIENT'S HEART RHYTHM AND BLOOD SUGAR.
[2021-04-21 17:22] LABS: GGTP 42 U/L (15-85)
[2021-04-21 20:39] VITALS: BP 136/86
--- NOTE | 2021-04-22 04:30 | NUR ---
patient ambulates in the hallway with unsteady gaits. fall precaution in place. patient in bed asleep at this time breathing regular and unlaboured.
[2021-04-22 07:31] VITALS: BP 116/65
--- NOTE | 2021-04-22 07:50 | EKG ---
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: KOFI : 1955 Requested By: Meena Merritt Order Number: [id number] MD: Cristobal Wilson Measurements Intervals [place] Rate: 87 P: AR: QRS: -49 QRSD: 126 T: 133 QT: 384 QTc: 462 Interpretive Statements Atrial fibrillation LVH with IVCD, LAD and secondary repol abnrm Probable inferior infarct, recent ST depression V1-V3, suggest recording posterior leads Compared to ECG 04/17/2021 10:01:43 ST (T wave) deviation now present Electronically Signed On 04-22-2021 7:50:21 CDT by Cristobal Wilson [email or web address] <ELECTRONICALLY SIGNED> By: Cristobal Wilson MD, FAC 04/22/21 0750 1409 1409 Cristobal Wilson MD, [facility] /EPI
[2021-04-22] MEDS ORDERED: CEFDINIR300 MG PO (12:01)
--- NOTE | 2021-04-22 13:08 | NUR ---
PT IS A&O*4, ROOM AIR. NO PAIN OR ANXIETY COMPLAINT. BLOOD SUGAR HAS BEEN MONITOR AND PT ON MODERATE SLIDING INSULIN DOSE. PT, OT EVELUATED AND WALKED PATIENT IN HALLWAY WITH GAIT BELT. REPORT UNSTEADY GAIT. FAMILY REQUESTED TO INVLOED MEDICAL DECISION MAKING FOR PATIENT AND REGISTERED OCCUPATIONAL THERAPIST QUIN[place] TALKED TO FAMILY AND PROVIED RELATED INFORMATION. PT WILL BE DISCHARGED TO HOME WITH HOME HEALTH CARE, PT AND OT. WILL KEEP MONITOR PATIENT'S SAFETY UNTIL LEAVE FLOOR.
[2021-04-22 13:13] VITALS: BP 116/68
[2021-04-22 13:28] VITALS: BP 116/68
[2021-04-22 14:14] VITALS: BP 116/68
--- NOTE | 2021-04-22 16:04 | NUR ---
CARE TEAM INDICATED THAT PT IS MEDICALLY STABLE TO DC HOME THIS DAY. CM MET WITH PT AND HIS SISTER ELISE FORD AT BEDSIDE THIS DAY. THEY INDICATED THAT THEY WERE INTERESTED IN POSSIBLE SHORT TERM SKILLED STAY. SISTER WAS CONCERNED ABOUT LACK OF ENDURANCE AND ASSISTANCE IN THE HOME SETTING. CM INDICATED THAT CM COULD PROVIDE [employer] SNF LIST FOR REVIEW IF THEY WANTED SKILLED INSTEAD OF HOME WITH HH. CM INDICATED THAT THEY WOULD NEED AUTH FOR SKILLED WHICH COULD TAKE 24-48HRS. THEY ASKED THAT CM LET THEM DISCUSS IT. SISTER INDICATED THAT PT WANTED TO DC HOME WITH HH. PT RECOMMEDED CAN FOR HOME USE PT REFUSED CANE WITH SISTER PRESENT. PT CONFIRMED HE WANTS TO DC HOME WITH HH. REFERRAL SENT TO [facility] THEY CAN ACCEPT WITH SOC THURSDAY. CM ARRANGED [facility] BETWEEN [phone]. CM NOTIFIED PT AND SISTER. PT TO DC HOME THIS DAY [facility]IA [facility] WITH [facility] SOC THURSDAY. NO OTHER CM INTERVENTION INDICATED. CASE CLOSED.
== END 2021-04-22 17:44 | disposition home health service (06) | DRG 871 ==
LOC: ER 09:50 → EROBS 14:35 → 4W 14:35
PROVIDERS: Emergency Medicine; Hospitalist; Internal Medicine; Nurse Practitioner Adult Health; ADMIT Hospitalist; ATTEND Hospitalist
DX: A41.9 Sepsis, unspecified organism (principal); I50.31 Acute diastolic (congestive) heart failure; I48.92 Unspecified atrial flutter; K80.00 Calculus of gallbladder with acute cholecystitis without obstruction; I48.21 Permanent atrial fibrillation; R65.20 Severe sepsis without septic shock; E78.5 Hyperlipidemia, unspecified; E11.9 Type 2 diabetes mellitus without complications; K21.9 Gastro-esophageal reflux disease without esophagitis; E86.0 Dehydration; I25.10 Atherosclerotic heart disease of native coronary artery without angina pectoris; E78.00 Pure hypercholesterolemia, unspecified; I48.91 Unspecified atrial fibrillation; I25.5 Ischemic cardiomyopathy; I11.0 Hypertensive heart disease with heart failure; I50.9 Heart failure, unspecified; Z20.822 Contact with and (suspected) exposure to COVID-19; Z95.1 Presence of aortocoronary bypass graft; Z79.84 Long term (current) use of oral hypoglycemic drugs; I25.2 Old myocardial infarction; Z95.810 Presence of automatic (implantable) cardiac defibrillator; Z79.82 Long term (current) use of aspirin; Z79.899 Other long term (current) drug therapy
CPT/HCPCS: 10040; 10045

== ENCOUNTER 2021-07-03 10:21 | Emergency (ER) | payer OTHER ==
[~2021-07-03] VITALS: Ht 182.9 cm; Wt 79.4 kg
[~2021-07-03 10:21] MED LIST changes: +CEFDINIR300 MG PO
[2021-07-03 12:20] VITALS: BP 135/87
== END 2021-07-03 12:20 | disposition home or self-care (01) ==
LOC: ER 10:21
DX: H61.23 Impacted cerumen, bilateral (principal)

== ENCOUNTER → 2021-11-26 | Outpatient (CLI) | payer OTHER ==
[~2021-11-26] MED LIST changes: +SIMVASTATIN40 MG PO
== END ==
LOC: LAB 12:27
PROVIDERS: ATTEND Student in an Organized Health Care Education/Training Program
DX: Z20.822 Contact with and (suspected) exposure to COVID-19 (principal)

== ENCOUNTER → 2021-11-27 | Outpatient (CLI) | payer OTHER ==
[~2021-11-27] VITALS: Ht 182.9 cm; Wt 78.0 kg
--- NOTE | 2021-11-28 11:34 | P ---
[facility] [place] [address] [place] [address] PROCEDURE REPORT Name: SHANDA HAIR [facility] [id number] Admission: 11/27/21 Attend Phys: Chester Dolan Discharge: Date of : 59 Report #: [id number] THIS REPORT FOR: cc: Serafin Almonte MD,Chester Geiger MD, MD ~ cc: Serafin Almonte MD DATE OF SERVICE: 11/27/2021 PROCEDURE PERFORMED: Colonoscopy with biopsies. HISTORY OF PRESENT ILLNESS: The patient is a 66-year-old male with a history of colon polyps, here for routine 5-year followup. Denies any symptoms. He does have a family history of colon cancer in his mother. Plan is for colonoscopy. DESCRIPTION OF PROCEDURE: The risks and benefits of the procedure were explained to the patient, those risks including, but not limited to bleeding, perforation and the risk of sedation. He understood these risks and gave informed consent. Sedation was given using propofol per Anesthesia. Next, a digital rectal exam was initially performed, which was normal. Next, using a standard Olympus colonoscope, the scope was placed in the patient's anus and advanced under direct vision to the cecum. The overall prep was good. The cecum and ileocecal valve were normal in appearance. The ascending colon was normal. In the transverse colon, a 4 mm sessile polyp was noted. This was removed with cold forceps, otherwise normal. The descending and sigmoid colon were normal. The rectal mucosa was normal. On retroflexion, no abnormalities were noted. The scope was then withdrawn and the procedure terminated. The patient tolerated the procedure well. IMPRESSION: 1. Small colonic polyp. 2. Otherwise normal colonoscopy. RECOMMENDATIONS: 1. Await biopsy results. 2. Repeat colonoscopy in 5 years. Thank you for allowing me to participate in his care. <ELECTRONICALLY SIGNED> By: Chester Putnam MD 11/28/21 1134 1025 1843 Chester Putnam MD /nt
--- NOTE | 2021-11-29 13:08 | PATH ---
[facility] [place] [address] PATHOLOGY RPT PROCEDURE Name: SHANDA ORLANDO Room #: REG [facility] Yvan.#: [id number] Admission: 11/27/21 Date of : 59 Discharge: Report #: [id number] Path Case #: [id number] [facility] Accession Number: [id number] . 01 Material submitted: . colon - TRANSVERSE COLON POLYP . 01 Clinical history: . HISTORY OF POLYPS . 02 Diagnosis: Transverse colon polyp, polypectomy: - Tubular adenoma. - Negative for high-grade dysplasia or malignancy. (ANK:pit; 11/29/2021) QT 11/29/2021 [facility] Local . 02 Electronically signed: . Anitra Payne MD, Pathologist NPI- [id number] . 01 Gross description: . The specimen is received in formalin, labeled "[place], Shanda, transverse colon polyp". Received are 3 segments of pale mendoza tissue ranging in size from 0.2 cm to 0.3 cm in maximum dimensions. The specimen is submitted entirely in cassette A1.([facility]; 11/28/2021) [facility] 11/28/2021 1518 Local . 02 Pathologist provided ICD-10: D12.3 . 02 CPT . 952756 Specimen Comment: A courtesy copy of this report has been sent to [phone] Specimen Comment: [phone] Specimen Comment: Report sent to AND DR GAYLE Performed at: [address], [place] [id number] MD Zi Mills MD Phone: [phone] Performed at: [address] [id number] MD Anitra Payne MD Phone: [phone]
== END ==
LOC: GI 08:59
PROVIDERS: ATTEND Specialist
DX: Z12.11 Encounter for screening for malignant neoplasm of colon (principal); D12.3 Benign neoplasm of transverse colon; K63.89 Other specified diseases of intestine; I10 Essential (primary) hypertension; E11.9 Type 2 diabetes mellitus without complications; I48.91 Unspecified atrial fibrillation; E78.00 Pure hypercholesterolemia, unspecified; Z79.899 Other long term (current) drug therapy; Z98.890 Other specified postprocedural states; Z86.010 Personal history of colon polyps; Z80.0 Family history of malignant neoplasm of digestive organs
CPT/HCPCS: 62110; 62900